=== PATIENT | female | born 1955 | race Caucasian/White ===

== ENCOUNTER 2025-02-15 14:24 | Emergency (ER) | payer OTHER ==
--- OUTSIDE RECORDS SUMMARY | 2025-02-15 14:28 | XMS REPORT | Continuity of Care Document ---
Author Name Unknown Address [address] 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 Role Phone HARESH IGLESIAS Primary Care Physician Unavailab HARESH Briceño Attending Clinician Unavailable Haresh Dasilva Attending Clinician [phone] MIKE BRANDON Attending Clinician MIKE Saldivar Attending Clinician Mike Saldivar MD Attending Clinician + [phone], [facility] Attending Clinician Unavailable Doctor Unassigned, Krebs Attending Clinician U KAYKAY Colvin Attending Clinician Unavailable DERICK RODGERS Attending Clinician UnavailDERICK Elizondo Attending Clinician UnavailDerick Elizondo MD Attending Clinician [phone] Haresh Dasilva Attending Clinician [phone] Lab, Ang - Db Attending Clinician Unavailable Derick Rodgers MD Attending Clinician [phone] DELON BROWN Attending Clinician Unavailable Delon Skelton Attending Clinician [phone] RADIOLOGY Attending Clinician Unavailable Radiology Attending Clinician Unavailable Doctor Unassigned, Krebs Attending Clinician U MIMI Fernandez Attending Clinician UnavailMIMI Wilkins Attending Clinician UnavailLEIDY Cruz Attending Clinician Unavailable Monique Flores Attending Clinician Ethan SMALLWOOD, Leidy Attending Clinician [phone] Melida Cabrera MA Attending Clinician UnavailAngeline Quintero MA Attending Clinician UnavailAZIZA Currie Attending Clinician Unavailable Pob, [facility] Main Attending Clinician Marisela Morales RN, Christiana Attending Clinician Unavailjose e UNKNOWN, ATTENDING Attending Clinician Unavailab le Pob1, Acute [facility] Attending Clinician Unav ailable Unknown, Attending Attending Clinician Unavailab camelia Ebrahim RESISTOR COATER, Dano Attending Clinician [phone] HARESH IGLESIAS Admitting Clinician Unavailable CHRISTY RODRIGUEZ Admitting Clinician Unavailable Payers Payer Name Policy Type Policy Number Effective Date Expirati on Date Source [employer] [id number] 2011 00:00:00 Problems Condition Name Condition Details Condition Category Status Onset Date Resolution Date Last Treatment Date Treating Clinician Comments Source Acute vaginitis Acute vaginitis Disease Active 2-04 00:00: 00 [facility] Vaginal itching Vaginal itching Disease Active 2-04 00:00: 00 [facility] Chronic pain of left knee Chronic pain of left knee Disease Active 2023-11 0-30 00:00: 00 [facility] Swelling of lower leg Swelling of lower leg Disease Active 2023-11 0-30 00:00: 00 [facility] Varicose veins of calf Varicose veins of calf Disease Active 2023-11 0-30 00:00: 00 [facility] Foot pain, right Foot pain, right Disease Active 6-03 00:00: 00 [facility] Dupuytren contractur e Dupuytren contractur e Disease Active 6-03 00:00: 00 [facility] Mass of foot, right Mass of foot, right Disease Active 6-03 00:00: 00 [facility] Yeast infection Yeast infection Disease Active 3-14 00:00: 00 [facility] Ingrown nail of great toe of right foot Ingrown nail of great toe of right foot Disease Active 3- 00:00: 00 [facility] Staph aureus infection Staph aureus infection Disease Active 3 00:00: 00 [facility] Nausea Nausea Disease Active 06-16 00:00: 00 [facility] Epigastric abdominal tenderness without rebound tenderness Epigastric abdominal tenderness without rebound tenderness Disease Active 06-16 00:00: 00 [facility] Right lower quadrant abdominal tenderness without rebound tenderness Right lower quadrant abdominal tenderness without rebound tenderness Disease Active 06-16 00:00: 00 [facility] Weight gain Weight gain Disease Active 06-16 00:00: 00 [facility] Weight gain Weight gain Disease Active 06-16 00:00: 00 [facility] Well woman exam Well woman exam Disease Resolve d 05-06 00:00: 00 2025-01-06 00:00:00 2025-01-06 15:22:13 [facility] Allergies, Adverse Reactions, Alerts Allergy Name Allergy Type Status Severity Reaction(s) Onset Date Inactive Date Treating Clinician Comments Source NO KNOWN ALLERGIE S Drug Class Active [facility] Social History Social Habit Start Date Stop Date Quantity Comments Source Gender identity [facility] Alcoholic beverage intake 2025-01-09 00:00:00 2025-01-09 00:00:00 0 /d [facility] History of Social function 2024-04-25 00:00:00 2024-04-25 00:00:00 [facility] Exposure to SARS-CoV-2 (event) 2023-02-23 00:00:00 2023-03-05 08:18:00 Not sure [facility] Alcohol intake 2023-02-27 00:00:00 2023-02-27 00:00:00 0 /d [facility] Tobacco use and exposure 2022-06-16 00:00:00 2022-06-16 00:00:00 Smokeless tobacco non-user [facility] Sex assigned at 1955 00:00:00 1955 00:00:00 [facility] Smoking Status Start Date Stop Date Source Never smoked tobacco [facility] Medications Ordered Medication Name Filled Medication Name Start Date Stop Date Current Medication? Ordering Clinician Indication Dosage Frequency Signature (SIG) Comments Components Source valACYclovi r (VALTREX) 500 mg tablet 18 00:00: 00 Yes [id number] 500mg Take 1 tablet by mouth in the morning and 1 tablet in the evening. [facility] sulfamethox azole-trime thoprim (BACTRIM DS) 800-160 mg per tablet 01-09 00:00: 00 Yes [id number] 1{tbl} Take 1 tablet by mouth in the morning and 1 tablet in the evening. [facility] miconazole 2 % cream 12-27 00:00: 00 Yes [id number] Apply to area(s) 2 (two) times daily. [facility] diclofenac 75 mg EC tablet 2023-11 00:00: 00 Yes [id number] 75mg Take 1 tablet by mouth in the morning and 1 tablet in the evening. Take with meals. [facility] meloxicam 7.5 mg tablet 04-25 00:00: 00 09-21 00:00 :00 No [id number] 7.5mg Take 1 tablet by mouth in the morning. [facility] sulfamethox azole-trime thoprim (BACTRIM DS) 800-160 mg per tablet 03-03 00:00: 00 09-21 00:00 :00 No [id number] 1{tbl} Take 1 tablet by mouth in the morning and 1 tablet in the evening. [facility] mupirocin 2 % ointment 02-27 00:00: 00 09-21 00:00 :00 No [id number] Apply to area(s) daily. [facility] cephALEXin 500 mg capsule 02-27 00:00: 00 09-21 00:00 :00 No [id number] 500mg Take 1 capsule by mouth in the morning and 1 capsule in the evening. [facility] MULTIVITAMI N WITH MINERALS (MULTIVITAM IN & MINERAL FORMULA ORAL) 02-03 15:35: 33 02-03 00:00 :00 No Take by mouth. [facility] doxycycline hyclate 100 mg tablet 02-03 00:00: 00 09-21 00:00 :00 No [id number] 100mg Take 1 tablet by mouth in the morning and 1 tablet in the evening. [facility] fluconazole (DIFLUCAN) 150 mg tablet 02-03 00:00: 00 02-03 00:00 :00 No [id number] One dose now and repeat in 72 hrs [facility] MULTIVITAMI N WITH MINERALS (MULTIVITAM IN & MINERAL FORMULA ORAL) 01-30 09:04: 25 Yes Take by mouth. [facility] mupirocin 2 % ointment 01-30 00:00: 00 02-14 04:59 :00 No [id number] Apply to area(s) 3 (three) times daily for 14 days. [facility] doxycycline hyclate 100 mg tablet 01-28 00:00: 00 09-21 00:00 :00 No 100mg Take 1 tablet by mouth every 12 (twelve) hours. [facility] MULTIVITAMI N WITH MINERALS (MULTIVITAM IN & MINERAL FORMULA ORAL) 06-16 09:00: 40 Yes Take by mouth. [facility] diclofenac 75 mg EC tablet 01-31 00:00: 00 02-03 00:00 :00 No [id number] 75mg Take 1 tablet by mouth 2 (two) times daily with meals. [facility] Vital Signs Vital Name Observation Time Observation Value Comments Malu dawkins Systolic blood pressure 2025-01-09 21:37:00 115 mm[Hg] [facility] Diastolic blood pressure 2025-01-09 21:37:00 74 mm[Hg] [facility] Heart rate 2025-01-09 21:37:00 66 /min [facility] Body temperature 2025-01-09 21:37:00 36.89 Adelina [facility] Respiratory rate 2025-01-09 21:37:00 18 /min [facility] Body height 2025-01-09 21:37:00 160 cm [facility] Systolic blood pressure 2025-01-06 21:05:00 124 mm[Hg] [facility] Diastolic blood pressure 2025-01-06 21:05:00 76 mm[Hg] [facility] Heart rate 2025-01-06 21:05:00 64 /min [facility] Body temperature 2025-01-06 21:05:00 36.61 Adelina [facility] Respiratory rate 2025-01-06 21:05:00 18 /min [facility] Body height 2025-01-06 21:05:00 160 cm [facility] Systolic blood pressure 2024-12-27 20:02:00 127 mm[Hg] [facility] Diastolic blood pressure 2024-12-27 20:02:00 68 mm[Hg] [facility] Heart rate 2024-12-27 20:02:00 65 /min [facility] Body temperature 2024-12-27 20:02:00 37 Adelina [facility] Respiratory rate 2024-12-27 20:02:00 18 /min [facility] Body height 2024-12-27 20:02:00 160 cm [facility] Oxygen saturation in Arterial blood by Pulse oximetry 2024-12-27 20:02:00 98 /min [facility] Systolic blood pressure 2024-09-26 21:33:00 100 mm[Hg] [facility] Diastolic blood pressure 2024-09-26 21:33:00 66 mm[Hg] [facility] Heart rate 2024-09-26 21:33:00 65 /min [facility] Body height 2024-09-26 21:33:00 160 cm [facility] Systolic blood pressure 2024-09-21 14:20:00 146 mm[Hg] [facility] Diastolic blood pressure 2024-09-21 14:20:00 71 mm[Hg] [facility] Heart rate 2024-09-21 14:19:00 70 /min [facility] Body temperature 2024-09-21 14:19:00 36.78 Adelina [facility] Respiratory rate 2024-09-21 14:19:00 18 /min [facility] Body height 2024-09-21 14:19:00 160 cm [facility] Oxygen saturation in Arterial blood by Pulse oximetry 2024-09-21 14:19:00 98 /min [facility] Systolic blood pressure 2024-04-25 20:25:00 116 mm[Hg] [facility] Diastolic blood pressure 2024-04-25 20:25:00 71 mm[Hg] [facility] Heart rate 2024-04-25 20:25:00 59 /min [facility] Body temperature 2024-04-25 20:25:00 36.5 Adelina [facility] Respiratory rate 2024-04-25 20:25:00 18 /min [facility] Body height 2024-04-25 20:25:00 160 cm [facility] Oxygen saturation in Arterial blood by Pulse oximetry 2024-04-25 20:25:00 98 /min [facility] Systolic blood pressure 2023-08-13 13:06:00 108 mm[Hg] [facility] Diastolic blood pressure 2023-08-13 13:06:00 68 mm[Hg] [facility] Heart rate 2023-08-13 13:06:00 77 /min [facility] Body height 2023-08-13 13:06:00 160 cm [facility] Body weight 2023-08-13 13:06:00 71.215 kg [facility] BMI 2023-08-13 13:06:00 27.81 kg/m2 [facility] Body temperature 2023-03-05 15:57:00 36.39 Adelina [facility] Body height 2023-03-05 15:57:00 160 cm [facility] Body weight 2023-03-05 15:57:00 73.936 kg [facility] BMI 2023-03-05 15:57:00 28.87 kg/m2 [facility] Systolic blood pressure 2023-03-05 13:59:00 117 mm[Hg] [facility] Diastolic blood pressure 2023-03-05 13:59:00 73 mm[Hg] [facility] Heart rate 2023-03-05 13:59:00 69 /min [facility] Body temperature 2023-03-05 13:59:00 36.67 Adelina [facility] Respiratory rate 2023-03-05 13:59:00 18 /min [facility] Body height 2023-03-05 13:59:00 160 cm [facility] Body weight 2023-03-05 13:59:00 73.936 kg [facility] BMI 2023-03-05 13:59:00 28.87 kg/m2 [facility] Oxygen saturation in Arterial blood by Pulse oximetry 2023-03-05 13:59:00 99 /min [facility] Systolic blood pressure 2023-02-09 15:32:00 115 mm[Hg] [facility] Diastolic blood pressure 2023-02-09 15:32:00 72 mm[Hg] [facility] Heart rate 2023-02-09 15:32:00 58 /min [facility] Body temperature 2023-02-09 15:32:00 36.89 Adelina [facility] Body height 2023-02-09 15:32:00 160 cm [facility] Oxygen saturation in Arterial blood by Pulse oximetry 2023-02-09 15:32:00 100 /min [facility] Systolic blood pressure 2023-02-03 20:21:00 118 mm[Hg] [facility] Diastolic blood pressure 2023-02-03 20:21:00 64 mm[Hg] [facility] Heart rate 2023-02-03 20:21:00 64 /min [facility] Body temperature 2023-02-03 20:21:00 36.67 Adelina [facility] Body height 2023-02-03 20:21:00 160 cm [facility] Oxygen saturation in Arterial blood by Pulse oximetry 2023-02-03 20:21:00 99 /min [facility] Systolic blood pressure 2023-01-30 15:04:00 133 mm[Hg] [facility] Diastolic blood pressure 2023-01-30 15:04:00 76 mm[Hg] [facility] Heart rate 2023-01-30 15:04:00 70 /min [facility] Body temperature 2023-01-30 15:04:00 36.56 Adelina [facility] Body height 2023-01-30 15:04:00 160 cm [facility] Body weight 2023-01-30 15:04:00 72.576 kg [facility] BMI 2023-01-30 15:04:00 28.34 kg/m2 [facility] Oxygen saturation in Arterial blood by Pulse oximetry 2023-01-30 15:04:00 98 /min [facility] Systolic blood pressure 2022-06-16 13:59:00 124 mm[Hg] [facility] Diastolic blood pressure 2022-06-16 13:59:00 82 mm[Hg] [facility] Heart rate 2022-06-16 13:59:00 55 /min [facility] Body height 2022-06-16 13:59:00 160 cm [facility] Body weight 2022-06-16 13:59:00 70.308 kg pt reported weight verbally- refused to obtain weight physically [facility] BMI 2022-06-16 13:59:00 27.46 kg/m2 [facility] Oxygen saturation in Arterial blood by Pulse oximetry 2022-06-16 13:59:00 99 /min [facility] Procedures Procedure Date / Time Performed Performing Clinician Source BI DIAGNOSTIC TOMOSYNTHESIS RIGHT 2025-01-24 15:12:08 Haresh Iglesias [facility] POCT URINALYSIS 2024-12-27 20:00:00 Haresh Iglesias [facility] BI HITESH GUIDED CORE BREAST BIOPSY RIGHT 2024-06-20 16:17:25 Haresh Iglesias [facility] BI ULTRASOUND BREAST COMPLETE RIGHT 2024-06-08 20:58:00 Haresh Iglesias [facility] BI DIAGNOSTIC TOMOSYNTHESIS RIGHT 2024-06-08 20:37:27 Haresh Iglesias [facility] US FOOT RIGHT 2024-05-06 12:45:00 Haresh Iglesias [facility] XR TOES 2 VW LEFT 2023-08-13 13:24:01 Derick Rodgers [facility] XR TOES 2 VW LEFT 2023-08-07 14:04:40 Requisition, Pap er [facility] ASSIGNMENT OF BENEFITS 2023-08-07 13:40:17 Docto r Unassigned, Krebs [facility] DISCLOSURE AND CONSENT, MEDICAL AND SURGICAL PROCEDURES 2023-02-27 05:01:00 Doctor Unassigned, Krebs [facility] PHYSICIAN ORDERS 2023-02-09 05:01:00 Doctor Unas signed, Krebs [facility] US ABDOMEN LIMITED 2022-07-21 13:32:42 Haresh Iglesias [facility] Encounters Start Date/Time End Date/Time Encounter Type Admission Type Attending Clinicians Care Facility Care Department Encounter ID Source 2025-01-24 08:02:39 2025-01-24 23:59:00 Hospital Encounter Haresh Iglesias [facility] .2.840.114 350.1.13.10 4.2.7.2.686 [id number] [facility] 2025-01-24 08:02:39 2025-01-24 23:59:00 Outpatient R HARESH IGLESIAS [facility] [id number] [facility] 2025-01-17 10:00:00 2025-01-17 10:00:00 Outpatient R MIKE BURGOS MARISOL [facility] [id number] [facility] 2025-01-10 00:00:00 2025-01-10 16:57:10 [facility] .2.840.114 350.1.13.10 4.2.7.2.686 [id number] [facility] 2025-01-10 00:00:00 2025-01-10 11:42:54 Case Management [facility] 1.2.840.114 350.1.13.10 4.2.7.2.686 [id number] [facility] 2025-01-09 15:30:00 2025-01-09 15:53:14 Office Visit Jay-Chel s Mike [facility] 1.2840.114 350.1.13.10 4.2.7.2.686 [id number] [facility] 2025-01-09 15:15:00 2025-01-09 15:30:00 Second Rigger Visit 2, Adc Lab Jay-Chel s, Mike 2, Adc Lab [facility] 1.2.840.114 350.1.13.10 4.2.7.2.686 [id number] [facility] 2025-01-09 15:15:00 2025-01-09 15:15:00 Outpatient R JAY-CHEL S, MIKE JAY-CHEL S, MIKE [facility] [id number] [facility] 2024-05-02 00:00:00 2025-01-07 07:33:41 Orders Only Doctor Unassigned, Krebs Doctor Unassigned, Krebs [facility] 1..840.114 350.1.13.10 4.2.7.2.686 [id number] [facility] 2025-01-06 15:00:00 2025-01-06 15:49:46 Outpatient R JAY-CHEL S, MIKE JAY-CHEL S, MIKE [facility] [id number] [facility] 2025-01-06 15:00:00 2025-01-06 15:49:46 Office Visit Jay-Chel s, Mike [facility] 1.2.840.114 350.1.13.10 4.2.7.2.686 [id number] [facility] 2024-12-27 14:00:00 2024-12-27 14:16:18 Outpatient R HARESH IGLESIAS [facility] [id number] [facility] 2024-12-27 14:00:00 2024-12-27 14:16:18 [facility] 1..840.114 350.1.13.10 4.2.7.2.686 [id number] [facility] 2024-10-12 13:30:00 2024-10-12 13:30:00 Outpatient R VIRAJHARESH Burrell [facility] [id number] [facility] 2024-09-26 15:45:00 2024-09-26 15:51:01 Outpatient R DERICK RODGERS CRAIG [facility] [id number] [facility] 2024-09-26 15:45:00 2024-09-26 15:51:01 Office Visit Derick Rodgers [facility] 1.2.840.114 350.1.13.10 4.2.7.2.686 [id number] [facility] 2024-09-21 09:52:06 2024-09-21 23:59:00 Outpatient R VIRAJHARESH Burrell [facility] [id number] [facility] 2024-09-21 09:52:06 2024-09-21 23:59:00 Hospital Encounter [facility]Haresh burrell [facility] 1.2.840.114 350.1.13.10 4.2.7.2.686 [id number] [facility] 2024-09-21 09:30:00 2024-09-21 09:52:18 Office Visit Kelsie Haresh [facility] 1.2840.114 350.1.13.10 4.2.7.2.686 [id number] [facility] 2024-09-21 08:00:00 2024-09-21 08:00:00 Outpatient R HARESH IGLESIAS [facility] [id number] [facility] 2024-09-19 15:45:00 2024-09-19 15:45:00 Outpatient R RODGERS DERICK DERICK RODGERS [facility] [id number] [facility] 2024-09-08 00:00:00 2024-09-14 10:27:31 Telephone Haresh Iglesias [facility] 1.2840.114 350.1.13.10 4.2.7.2.686 [id number] [facility] 2024-06-21 00:00:00 2024-06-21 15:31:10 Telephone Haresh Iglesias [facility] 1.2840.114 350.1.13.10 4.2.7.2.686 [id number] [facility] 2024-06-20 08:34:34 2024-06-20 23:59:00 Outpatient R HARESH IGLESIAS [facility] [id number] [facility] 2024-06-20 08:34:34 2024-06-20 23:59:00 Hospital Encounter Haresh Iglesias [facility] 1.2840.114 350.1.13.10 4.2.7.2.686 [id number] [facility] 2024-06-13 00:00:00 2024-06-13 13:56:06 Telephone Haresh [facility]lesias [facility] 1.2840.114 350.1.13.10 4.2.7.2.686 [id number] [facility] 2024-06-08 13:40:11 2024-06-08 23:59:00 Hospital Encounter VirajHaresh burrell [facility] 1.0.114 350.1.13.10 4.2.7.2.686 [id number] [facility] 2024-06-08 13:39:37 2024-06-08 13:39:37 Outpatient R KELSIEHARESH [facility] [id number] [facility] 2024-06-08 13:39:37 2024-06-08 13:39:37 Hospital Encounter KelsieHaresh [facility] 1..114 350.1.13.10 4.2.7.2.686 [id number] [facility] 2024-05-31 00:00:00 2024-05-31 00:00:00 Outpatient R KELSIECHRISTENIE [facility] [id number] [facility] 2024-05-25 09:30:00 2024-05-25 09:30:00 Outpatient R HARESH IGLESIAS [facility] [id number] [facility] 2024-05-06 07:03:26 2024-05-06 23:59:00 Outpatient R HARESH IGLESIAS [facility] [id number] [facility] 2024-05-06 07:03:26 2024-05-06 23:59:00 Hospital Encounter Haresh Iglesias [facility] 1.114 350.1.13.10 4.2.7.2.686 [id number] [facility] 2024-05-02 00:00:00 2024-05-02 09:08:18 Telephone Haresh Igles[facility] 1.84.114 350.1.13.10 4.2.7.2.686 [id number] [facility] 2024-04-29 00:00:00 2024-04-29 13:45:51 Telephone [facility]resh [facility]lesias [facility] 1.84.114 350.1.13.10 4.2.7.2.686 [id number] [facility] 2024-04-28 08:45:00 2024-04-28 09:00:00 Second Rigger Visit Lab, Fabian VicenteHaresh burrell [facility] 1.84.114 350.1.13.10 4.2.7.2.686 [id number] [facility] 2024-04-28 08:45:00 2024-04-28 08:58:52 Outpatient R VIRAJHARESH Burrell [facility] [id number] [facility] 2024-04-28 00:00:00 2024-04-28 08:51:07 Telephone Haresh Iglesias [facility] 1.840.114 350.1.13.10 4.2.7.2.686 [id number] [facility] 2024-04-25 15:30:00 2024-04-25 15:51:43 Outpatient R HARESH IGLESIAS [facility] [id number] [facility] 2024-04-25 15:30:00 2024-04-25 15:51:43 Office Visit [facility]Haresh burrell [facility] 1.84.114 350.1.13.10 4.2.7.2.686 [id number] [facility] 2023-08-13 08:14:37 2023-08-13 23:59:00 Hospital Encounter Derick [facility] 1.840.114 350.1.13.10 4.2.7.2.686 [id number] [facility] 2023-08-13 08:00:00 2023-08-13 08:41:51 Outpatient R DELON BROWN [facility] [id number] [facility] 2023-08-13 08:00:00 2023-08-13 08:41:51 [facility] 1.840.114 350.1.13.10 4.2.7.2.686 [id number] [facility] 2023-08-07 08:40:41 2023-08-07 23:59:00 Outpatient R RADIOLOGY [facility] [id number] [facility] 2023-08-07 08:40:41 2023-08-07 23:59:00 Hospital Encounter Radiology [facility] 1.0.114 350.1.13.10 4.2.7.2.686 [id number] [facility] 2023-08-07 00:00:00 2023-08-07 00:00:00 Orders Only Doctor Unassigned, Krebs [facility] 1.2840.114 350.1.13.10 4.2.7.2.686 [id number] [facility] 2023-08-07 00:00:00 2023-08-07 00:00:00 Telephone [facility] 1.2840.114 350.1.13.10 4.2.7.2.686 [id number] [facility] 2023-04-14 14:00:00 2023-04-14 14:00:00 Outpatient R HARESH IGLESIAS [facility] [id number] [facility] 2023-04-09 00:00:00 2023-04-09 00:00:00 Patient Secure Msg Doctor Unassigned, Krebs [facility] 1.84.114 350.1.13.10 4.2.7.2.686 [id number] [facility] 2023-04-07 10:15:00 2023-04-07 10:15:00 Outpatient R MIMI KNIGHT [facility] [id number] [facility] 2023-03-19 09:30:00 2023-03-19 09:30:00 Outpatient MIMI PINTO [facility] [id number] [facility] 2023-03-05 11:00:00 2023-03-05 11:06:26 Office Visit Mimi Knight [facility] 1.840.114 350.1.13.10 4.2.7.2.686 [id number] [facility] 2023-03-05 09:30:00 2023-03-05 10:46:52 Outpatient LEIDY FISHER [facility] [id number] [facility] 2023-03-05 09:30:00 2023-03-05 10:46:52 Office Visit Monique Pearson David [facility] .84.114 350.1.13.10 4.2.7.2.686 [id number] [facility] 2023-03-04 00:00:00 2023-03-04 00:00:00 Patient Secure Msg Doctor Unassigned, Krebs [facility] 1.84.114 350.1.13.10 4.2.7.2.686 [id number] [facility] 2023-03-03 09:30:00 2023-03-03 09:30:00 Outpatient HARESH PATRICK [facility] [id number] [facility] 2023-03-03 00:00:00 2023-03-03 00:00:00 Telephone Mimi Knight [facility] 1..840.114 350.1.13.10 4.2.7.2.686 [id number] [facility] 2023-02-27 12:30:00 2023-02-27 13:31:25 Outpatient R MIMI KNIGHT MIMI [facility] [id number] [facility] 2023-02-27 00:00:00 2023-02-27 00:00:00 Orders Only Doctor Unassigned, [facility] 1..840.114 350.1.13.10 4.2.7.2.686 [id number] [facility] 2023-02-16 00:00:00 2023-02-16 00:00:00 Telephone Haresh Ilgesias [facility] 1..840.114 350.1.13.10 4.2.7.2.686 [id number] [facility] 2023-02-11 13:15:00 2023-02-11 13:15:00 Outpatient R DELON BROWN [facility] [id number] [facility] 2023-02-09 10:30:00 2023-02-09 10:51:46 Outpatient R HARESH IGLESIAS [facility] [id number] [facility] 2023-02-09 10:30:00 2023-02-09 10:51:46 Office Visit Kelsie [facility] 1..840.114 350.1.13.10 4.2.7.2.686 [id number] [facility] 2023-02-09 00:00:00 2023-02-09 00:00:00 Orders Only Doctor Unassigned, Krebs [facility] 1.840.114 350.1.13.10 4.2.7.2.686 [id number] [facility] 2023-02-06 13:00:00 2023-02-06 13:00:00 Outpatient R EMMA KNIGHTMIMI PHILLIPS [facility] [id number] [facility] 2023-02-03 15:30:00 2023-02-03 15:53:31 Outpatient R HARESH IGLESIAS [facility] [id number] [facility] 2023-02-03 15:30:00 2023-02-03 15:53:31 Office Visit Haresh Iglesias [facility] 1..840.114 350.1.13.10 4.2.7.2.686 [id number] [facility] 2023-01-30 09:31:45 2023-01-30 23:59:00 Outpatient R HARESH IGLESIAS [facility] [id number] [facility] 2023-01-30 09:30:00 2023-01-30 09:30:00 Office Visit Haresh Iglesias [facility] 1..840.114 350.1.13.10 4.2.7.2.686 [id number] [facility] 2022-07-21 07:41:03 2022-07-21 23:59:00 Outpatient R HARESH IGLESIAS [facility] [id number] [facility] 2022-07-21 07:41:03 2022-07-21 23:59:00 Hospital Encounter Haresh Iglesias [facility] 1.840.114 350.1.13.10 4.2.7.2.686 [id number] [facility] 2022-07-07 00:00:00 2022-07-07 00:00:00 Outpatient R VIRAJHARESH Burrell [facility] [id number] [facility] 2022-06-16 09:30:00 2022-06-16 09:45:00 Second Rigger Visit Lab, Fabian Alvarado [facility] LAURO?RADHAMary [facility] 1.114 350.1.13.10 4.2.7.2.686 [id number] [facility] 2022-06-16 09:00:00 2022-06-16 09:34:55 Office Visit VirajHaresh burrell [facility] LAURO?RADHAMary [facility] 1.114 350.1.13.10 4.2.7.2.686 [id number] [facility] 2022-06-16 09:00:00 2022-06-16 09:34:55 Outpatient R KELSIECHRISTENIE [facility] [id number] [facility] 2022-06-16 09:30:00 2022-06-16 09:30:00 Outpatient R VIRAJHARESH Burrell [facility] [id number] [facility] 2022-06-16 00:00:00 2022-06-16 00:00:00 Orders Only Doctor Unassigned, Krebs [facility] 1.114 350.1.13.10 4.2.7.2.686 [id number] [facility] 2022-06-09 00:00:00 2022-06-09 00:00:00 Pre Visit Outreach Melida Cabrera 1.114 350.1.13.10 4.2.7.2.686 [id number] [facility] 2022-06-06 00:00:00 2022-06-06 00:00:00 Abstract [facility] LAURO?[facility] 1.114 350.1.13.10 4.2.7.2.686 [id number] [facility] 2022-03-24 00:00:00 2022-03-24 00:00:00 Pre Visit Outreach Angeline Stern 1.284.114 350.1.13.10 4.2.7.2.686 [id number] [facility] 2022-03-03 00:00:00 2022-03-03 00:00:00 Orders Only Doctor Unassigned, Krebs [facility] 1..114 350.1.13.10 4.2.7.2.686 [id number] [facility] 2022-01-31 09:36:32 2022-01-31 23:59:00 Outpatient R DERICK RODGERS [facility] [id number] [facility] 2022-01-31 09:30:00 2022-01-31 13:05:52 Outpatient R DERICK RODGERS [facility] [id number] [facility] 2022-01-31 09:30:00 2022-01-31 13:05:52 Office Visit Derick Rodgers [facility] 1..840.114 350.1.13.10 4.2.7.2.686 [id number] [facility] 2022-01-28 10:00:00 2022-01-28 10:00:00 Outpatient R DERICK RODGERS [facility] [id number] [facility] 2021-09-27 09:15:00 2021-09-27 11:58:52 Outpatient R DERICK RODGERS [facility] [id number] [facility] 2021-09-27 09:03:09 2021-09-27 11:58:52 Office Visit Derick Rodgers [facility] 1.2.84114 350.1.13.10 4.2.7.2.686 [id number] [facility] 2021-09-27 09:15:00 2021-09-27 09:15:00 Outpatient R DERICK RODGERS [facility] [id number] [facility] 2021-09-12 00:00:00 2021-09-12 00:00:00 Telephone Derick Rodgers [facility] Lauro?[facility] 1.84.114 350.1.13.10 4.2.7.2.686 [id number] [facility] 2021-09-12 00:00:00 2021-09-12 00:00:00 Orders Only Doctor Unassigned, Krebs [facility] 1.84.114 350.1.13.10 4.2.7.2.686 [id number] [facility] 2021-04-30 10:00:00 2021-04-30 10:00:00 Outpatient R AZIZA ROBLES [facility] [id number] [facility] 2021-04-30 00:00:00 2021-04-30 00:00:00 Orders Only Doctor Unassigned, Krebs [facility] 1.84.114 350.1.13.10 4.2.7.2.686 [id number] [facility] 2021-04-17 15:00:00 2021-04-17 15:00:00 Outpatient R DELON BROWN [facility] [id number] [facility] 2021-04-17 14:18:30 2021-04-17 14:33:30 Office Visit Delon Brown [facility] 1.84.114 350.1.13.10 4.2.7.2.686 [id number] [facility] 2021-04-08 16:15:00 2021-04-08 16:15:00 Outpatient Cielo DELON BROWN [facility] [id number] [facility] 2021-04-08 13:15:44 2021-04-08 13:42:57 Office Visit Derick Rodgers Brett Malu [facility] delfino Shell 1.2.840.114 350.1.13.10 4.2.7.2.686 [id number] [facility] 2021-03-27 07:46:01 2021-03-27 08:01:01 Second Rigger Visit Pob, Adc Lab Main Rodgers, [facility] 1.2.840.114 350.1.13.10 4.2.7.2.686 [id number] [facility] 2021-03-27 07:42:33 2021-03-27 07:42:33 Hospital Encounter Samir Derick [facility] 1.2.840.114 350.1.13.10 4.2.7.2.686 [id number] [facility] 2021-03-27 07:42:33 2021-03-27 07:42:33 Outpatient R DERICK RODGERS [facility] [id number] [facility] 2021-03-27 00:00:00 2021-03-27 00:00:00 Outpatient R DERICK RODGERS [facility] [id number] [facility] 2021-03-21 11:00:00 2021-03-21 11:00:00 Outpatient R DERICK RODGERS [facility] [id number] [facility] 2021-03-21 09:24:39 2021-03-21 10:02:37 Office Visit Derick Rodgers [facility] delfino [employer] 1.2.840.114 350.1.13.10 4.2.7.2.686 [id number] [facility] 2021-03-21 00:00:00 2021-03-21 00:00:00 Orders Only Doctor Unassigned, Krebs [facility] 1.2.840.114 350.1.13.10 4.2.7.2.686 [id number] [facility] 2021-03-14 07:39:47 2021-03-14 23:59:00 Hospital Encounter Rodgers Derick [facility] 1.2.840.114 350.1.13.10 4.2.7.2.686 [id number] [facility] 2021-03-14 00:00:00 2021-03-14 00:00:00 Outpatient R DERICK RODGERS [facility] [id number] [facility] 2021-03-14 00:00:00 2021-03-14 00:00:00 Orders Only Doctor Unassigned, Krebs [facility] 1.2.840.114 350.1.13.10 4.2.7.2.686 [id number] [facility] 2021-03-01 08:19:32 2021-03-01 23:59:00 Hospital Encounter [facility]ick [facility] 1.2.840.114 350.1.13.10 4.2.7.2.686 [id number] [facility] 2021-03-01 07:59:49 2021-03-01 08:45:46 Office Visit Samir Derick [facility] 1.2.840.114 350.1.13.10 4.2.7.2.686 [id number] [facility] 2021-03-01 08:15:00 2021-03-01 08:15:00 Outpatient R DERICK RODGERS [facility] [id number] [facility] 2021-02-25 15:15:2021-02-25 15:15:00 Outpatient R DERICK RODGERS [facility] [id number] [facility] 2020-05-26 00:00:00 2020-05-26 00:00:00 Orders Only Doctor Unassigned, Krebs [facility] 1.2.114 350.1.13.10 4.2.7.2.686 [id number] [facility] 2020-03-04 00:00:00 2020-03-04 00:00:00 Telephone [facility] 1..114 350.1.13.10 4.2.7.2.686 [id number] [facility] 2020-03-04 00:00:00 2020-03-04 00:00:00 Telephone [facility] 1..114 350.1.13.10 4.2.7.2.686 [id number] 2020-03-03 09:20:00 2020-03-03 09:20:00 Outpatient R UNKNOWN, ATTENDING [facility] [id number] [facility] 2020-03-03 08:43:29 2020-03-03 09:09:31 Urgent Care Pob1, Acute Care Clinic Unknown, Attending Dano Rodriguez [facility] 1. 350.1.13.10 4.2.7.2.686 [id number] [facility] 2020-03-03 08:43:29 2020-03-03 09:09:31 Urgent Care Pob1, Acute Care Clinic [facility] 1..114 350.1.13.10 4.2.7.2.686 [id number] 2020-03-03 00:00:00 2020-03-03 00:00:00 Orders Only Doctor Unassigned, Krebs [facility] 1.20.114 350.1.13.10 4.2.7.2.686 [id number] [facility] 2020-03-03 00:00:00 2020-03-03 00:00:00 Orders Only Doctor Unassigned, Krebs [facility] 1.2.840.114 350.1.13.10 4.2.7.2.686 [id number] Results Test Description Test Time Test Comments Results Result Comments Source BI Diagnostic tomosynthesis right 4 17:39:31 Examination:BI Diagnostic tomosynthesis right History:Patient is 69 year old and is seen for: ?Abnormal mammogram on right breast.No relevant family history has been documented for this patient. Computer-aided detection (CAD) utilized. Comparisons: 06/08/2024 BI DIAGNOSTIC TOMOSYNTHESIS RIGHT and 04/15/2021 EXTERNAL MAMMOGRAM Findings:There are scattered areas of fibroglandular density. RightThe focal asymmetry in the right breast at 12:00 posterior depth, 9 cm from the nipple seen on RCC /51, R ML 26/54, R SML 21/44 and R SCC 9/40 is mammographically stable dating back to at least 2019, benign. ?Of note, no prior sonographic correlate was identified for this finding. No new suspicious mass, calcifications or architectural distortion was identified. There is a marker from previous needle biopsy. Impression: RightNo mammographic evidence of malignancy. Recommendation:Annua l mammographic follow-up - Right These findings and recommendations were discussed with the patient at the conclusion of today's examination. BI-RADS Category:Right 2 - Benign [facility] BREAST BIOPSY RIGHT 2024-06-20 19:29:09Examination:BI HITESH GUIDED CORE BREAST BIOPSY RIGHT The procedure was explained to the patient including benefits and alternatives. ?The risks, including but not limited to infection and bleeding, were reviewed and the patient agreed to undergo the procedure, signing the consent form. ?Timeout was performed. History:Patient is a 69 year old year old female and is seen for: ? Right breast biopsy. ?Focal asymmetry in the upper inner subareolar region of the right breast, anterior depth, with associated coarse calcifications. ?BI- RADS 4A. Comparisons: 06/08/2024 BI DIAGNOSTIC TOMOSYNTHESIS RIGHT, 06/08/2024 BI ULTRASOUND BREAST COMPLETE RIGHT The patient was upright position for the biopsy. ?The area of interest was localized and targeted via lateral approach utilizing digital spot mammography with computer calculation. After antiseptic preparation the skin puncture site was infiltrated with lidocaine. ?Deep local anesthesia about the biopsy site was administered using lidocaine with epin ephrine. ?A 9 gauge Brevera vacuum-assisted automated core biopsy needle was inserted to the computer determined depth, and stereotactic images showed satisfactory relationship of the needle positionto the target. ?Tissue cores were obtained. ?Digital specimen radiography showed calcifications within some of the cores. ?A BAR tissue marker clip was deployed through the needle, and the needle waswithdrawn. Post biopsy mammogram confirmed the clip at the biopsy site. Pending workup:Follow-up in6 months right breast mammogram for 14 mm focal asymmetry at 12 o'clock, posterior depth, 9 cm fromthe nipple (refer to diagnostic mammogram on 06/08/2024). ?BI-RADS 3Recommendation:Pending pathology results - RightShort interval follow-up 3D mammogram 6 months - Right IMarc MD, personally reviewed the study and agree with the resident's/fellow's report.Marc Sosa MD as teaching physician, was present during either the entire procedure and/or during the gonzalez components.[facility] ULTRASOUND BREAST COMPLETE RIGHT 2024-06-08 22:26:15Examination:BI DIAGNOSTIC TOMOSYNTHESIS RIGHTBI ULTRASOUND BREAST COMPLETE RIGHT History:Patient is69 year old and is seen for: ?Abn mmg. Computer-aided detection (CAD) utilized. Comparisons: outside imaging exams dating back to 2017. Outside exam dated 04/27/2024 with the following findings: Apparent progression of anterior depth right breast nodular asymmetry, superior to the nipple on MLO view,likely correlates to a medial asymmetry on the cc view. ?No other dominant masses. ?No apparent architectural distortion or suspicious microcalcifications. Impression: Apparent progression of anterior depth right breast nodular asymmetry superior and probably medial to the nipple. ?This deserves additional imaging by spot compressed views and ultrasound of the abnormality persist. ?BI-RADS 0. CURRENT EXAM: ? Findings:The right breast has scattered areas of fibroglandular density. There is a 24 mm focal asymmetry in the upper inner subareolar region of the right breast; best seen on RSCC image30 of 42 and RML image 30 of 55. Overlying coarse calcifications are noted in this area. There is a14 mm focal asymmetry seen in the right breast at 12 o'clock, posterior depth, 9 cm from the nipple. This is best seen on RCC image 25 of 52 and R MLO image 24 of 56. ?This appears mammographically stable in appearance since prior imaging. Right breast ultrasound: Survey ultrasound of the right breast and axilla was performed. No sonographic correlate is noted for the focal asymmetry in the upperinner subareolar region of the right breast. No sonographic correlate is noted for the focal asymmetry at 12:00, 9 cm from the nipple. The visualized level 1 axillary lymph nodes appear unremarkable. Impression: Right: There is a 24 mm focal asymmetry in the upper inner subareolar region of the right breast, anterior depth, with associated coarse calcifications; best seen on RSCC image 30 of 42 and RML image 30 of 55 (no definite sonographic correlate). ?3D guided biopsy is recommended. ?BI-RADS 4A. There is a 14 mm focal asymmetry at 12 o'clock, posterior depth, 9 cm from the nipple; best seen on RCC image 25 of 52 and R MLO image 24 of 56. ?This appears mammographically stable in appearance since prior imaging, however, short interval follow-up 3D mammogram with spot compression views is recommended in 6 months to document stability on spot compression imaging and exclude an underlying abnormality. ?BI-RADS 3. Recommendation:Tomosynthesis Biopsy - RightShort interval follow-up 3D mammogram 6 months - Right BI-RADS Category: Right 4A - Suspicious Abnormality - Biopsy Should Be Considered - Low Suspicion [facility] DI[facility]ST[facility]OSYNTHESIS [id number] 22:26:15Examination:BI DIAGNOSTIC TOMOSYNTHESIS RIGHTBI ULTRASOUND BREAST COMPLETE RIGHT History:Patient is69 year old and is seen for: ?Abn mmg. Computer-aided detection (CAD) utilized. Comparisons: outside imaging exams dating back to 2016. Outside exam dated 04/27/2024 with the following findings: Apparent progression of anterior depth right breast nodular asymmetry, superior to the nipple on MLO view,likely correlates to a medial asymmetry on the cc view. ?No other dominant masses. ?No apparent architectural distortion or suspicious microcalcifications. Impression: Apparent progression of anterior depth right breast nodular asymmetry superior and probably medial to the nipple. ?This deserves additional imaging by spot compressed views and ultrasound of the abnormality persist. ?BI-RADS 0. CURRENT EXAM: ? Findings:The right breast has scattered areas of fibroglandular density. There is a 24 mm focal asymmetry in the upper inner subareolar region of the right breast; best seen on RSCC image30 of 42 and RML image 30 of 55. Overlying coarse calcifications are noted in this area. There is a14 mm focal asymmetry seen in the right breast at 12 o'clock, posterior depth, 9 cm from the nipple. This is best seen on RCC image 25 of 52 and R MLO image 24 of 56. ?This appears mammographically stable in appearance since prior imaging. Right breast ultrasound: Survey ultrasound of the right breast and axilla was performed. No sonographic correlate is noted for the focal asymmetry in the upperinner subareolar region of the right breast. No sonographic correlate is noted for the focal asymmetry at 12:00, 9 cm from the nipple. The visualized level 1 axillary lymph nodes appear unremarkable. Impression: Right: There is a 24 mm focal asymmetry in the upper inner subareolar region of the right breast, anterior depth, with associated coarse calcifications; best seen on RSCC image 30 of 42 and RML image 30 of 55 (no definite sonographic correlate). ?3D guided biopsy is recommended. ?BI-RADS 4A. There is a 14 mm focal asymmetry at 12 o'clock, posterior depth, 9 cm from the nipple; best seen on RCC image 25 of 52 and R MLO image 24 of 56. ?This appears mammographically stable in appearance since prior imaging, however, short interval follow-up 3D mammogram with spot compression views is recommended in 6 months to document stability on spot compression imaging and exclude an underlying abnormality. ?BI-RADS 3. Recommendation:Tomosynthesis Biopsy - RightShort interval follow-up 3D mammogram 6 months - Right BI-RADS Category: Right 4A - Suspicious Abnormality - Biopsy Should Be Considered - Low Suspicion for [facility]ancyC[facility] HospitalUS FOOT [id number] 21:12:09 EXAM: US FOOT RIGHT HISTORY: 69 years -old female with 2 painful palpable lumps along theplantar aspect of the right foot. TECHNIQUE: Focused real-time grayscale and Doppler evaluation of the rightfoot was performed. COMPARISON: None. FINDINGS: Ultrasonography of the right foot demonstrate multiple hypoechoic,lobulated/fusiform masses along the plantar fascia central aponeurosis; asingle fusiformlesion is positioned just distal to the calcaneal insertionof the plantar fascia measuring approximately 2 cm in long axis with alarger bilobed heterogeneous hypoechoic lesion positioned along the moredistal medial aponeurosis approaching the flexor hallucis longus tendon.This lesion measures approximately 2.6 cm in long axis. Color Doppler flowdemonstrates no internal vascularity .[facility] Notes Date/Time Note Provider Source 2025-01-24 09:00:00 Mammogram normal , repeat in 1 year [facility] 2025-01-10 16:52:47 Name and verified, pt states she wants to schedule a visit to discuss results with Dr. Brandon after she completes her medications next week. Pt does not want to discuss with me at this time. Appt made for 01/17 Cassidy Kwok RN 01/10/2025 4:56 PM R REVERSE ENGINEER Cassidy Kwok RN [facility] 2025-01-10 14:14:46 Rizwan Rosenthal is a 69 year old female patient called state she has some questions regarding test results. Asking to speak with Misty Shields. R REVERSE ENGINEER Miranda Daly [facility] 2025-01-10 11:43:20 Rizwan Rosenthal is a 69 year old female Calling to go over her test results, pt states she saw them via [employer] and has questions for her provider. [facility] Flores [facility] 2025-01-09 15:15:00 Images from the original note were not included. Venipuncture collection performed by clean technique on the left anticubitus. Total of 1 attempts were made. Slight pressure and a bandage/dressing were applied to the site(s). The patient experienced no complications. The following specimens were processed according to instructions and sent to [facility] laboratories per lab order on : LT BLUE SST RED LAV PPT DK GREEN (LiHep) DK GREEN (SodH) KRAMER DK BLUE (K2) DK BLUE (S) ACD Blood Culture NIPT/NTD Jay Shields only. [facility] 2024-09-14 10:26:57 Closing encounter, patient has not returned any calls. Shayla Serrano MA [facility] 2024-09-13 10:05:05 Attempted to contact patient. No answer. Left message to call back. Shirley Marcum LVN 09/13/2024 10:05 AM Shirley Marcum CONSTRUCTION RIGGER [facility] 2024-09-08 09:07:53 Attempted to contact patient. No answer. Left message to call back. Shirley Marcum LVN 09/08/2024 9:07 AM [facility] 2024-09-08 08:59:52 Pt states she has been having pain in her upper calf for several weeks now and it has not gone away. She also has pain behind her knee. Please Advise. Gege Hidalgo [facility] 2024-06-21 15:29:51 US of right breast to be done in 6 months for stability Order placed [facility] 2024-06-13 13:55:26 Spoke with Patient and clarified that the order was placed by SHYANN Pacheco. Patient voiced understanding. Leonela Lindo RN [facility] 2024-06-13 10:39:03 Patient would like a call back soon her test is scheduled for 06/20/24 and wants to make sure she is good to go. Please call pt to [phone] she is very anxious about this. Jerri Ashby [facility] 2024-06-13 08:22:43 Rizwan Rosenthal is a 69 year old female would like to speak with nurse to confirm she has the correct orders placed for her upcoming 06/20 Biopsy. She would also like to schedule a follow up with PCP after biopsy. Please assist with [employer] if possible [phone] (home) Emigdio Watesr [facility] 2024-05-02 10:43:27 Addended by: HARESH IGLESIAS. on: 05/02/2024 10:43 AM Modules accepted: Orders [facility] 2024-05-02 10:42:59 Order was placed , we will upload results of lucie into chart for radiologist to compare [facility] 2024-05-02 09:39:51 Spoke with Patient and she is requesting that SHYANN Pacheco place the order and that she would like to do it through [facility]. Leonela Lindo RN [facility] 2024-05-02 09:04:26 Mammogram results are in from [facility] It is recommending US with spot compression of right breast. Has this been ordered for pt hy a Amy Davey DITCH CLEANER? Or do I need to order? [facility] 2024-04-29 14:44:30 info T [facility] 2024-04-29 13:43:28 Patient dropped of a copy of mammogram report done at [facility] provider requested pt to drop off, placed in providers box for review. Patient would like a call back if there are any questions or concerns. Jerri Ashby [facility] 2024-04-28 08:48:29 Contacted patient and notified her the order was placed on 04/25/24. Gave number to [facility] [phone] and advised her to ask for radiology. She verbalized understanding. US FOOT RIGHT [[id number]] (Order [id number]) IMAGING Date: 04/25/2024 Department: Ang-Db [facility] Med Ordering/Authorizing: Haresh Iglesias FNP Patient Information Patient Name Rizwan Rosenthal Legal Sex Female (age) 1955 (69 year old) Electronically Signed By Department Dept Phone Kelsie Haresh, SHYANN ANG-DB [facility] [phone] Future Order Information Expected Expires 04/25/2024 04/25/2025 Dupuytren contracture Comment: acute stable Plan: US FOOT RIGHT, meloxicam 7.5 mg tablet Shirley Marcum LVN [facility] 2024-04-28 08:45:00 Images from the original note were not included. Venipuncture collection performed by clean technique on the left anticubitus. Total of 1 attempts were made. Slight pressure and a bandage/dressing were applied to the site(s). The patient experienced no complications. The following specimens were processed according to instructions and sent to [facility] laboratories per lab order on 04/28/2024 : LT BLUE SST 1 RED LAV 2 PPT DK GREEN (LiHep) DK GREEN (SodH) KRAMER DK BLUE (K2) DK BLUE (S) ACD Blood Culture NIPT/NTD [facility] 2024-04-28 08:40:26 Pt came into the office on 04/25/2024 and stated Kelsie was going to place and order for an ultrasound for her foot. No orders placed. She is requesting a call back from her nurse once the orders has been placed. Melida Grover [facility] 2023-08-07 14:06:12 Formatting of this n ote might be different from the original. Pt calling back to see if she was able to get an appointment for today. Georgette Mendoza [facility] 2023-08-07 11:55:02 Formatting of this n ote might be different from the original. Pt calling because she broke her toe a month ago and its not health properly. Pt wants to know if she can be put in today or Thursday to have this looked at [facility]
[2025-02-15 15:37] LABS: Influenza A Ag Negative; Influenza B Ag Negative; SARS-CoV-2 Antigen Rapid Res Negative (Negative)
--- NOTE | 2025-02-15 15:42 | RAD REPORT ---
Procedure: Chest Single View HISTORY: Cough COMPARISON: none FINDINGS: The lungs appear clear of acute infiltrate. Lungs are mildly hyperaerated. No significant pleural effusion noted. The heart is normal size. IMPRESSION: No acute abnormality is displayed.
[2025-02-15] MEDS ORDERED: ONDANSETRON 4 MG/2 ML VIAL ONE (16:20)
[2025-02-15] MEDS ORDERED: NA CHLORIDE 0.9% 1,000 ML ONE (16:20)
[2025-02-15 16:43] LABS: Absolute Monocytes 0.4 K/uL (0.1-1.3); Absolute Neutrophil 7.8 K/uL (1.8-8.0); Basophils % 0.4 % (0-1.3); Eosinophils % 0.4 % (0-4.4); Hematocrit 41.9 % (36.0-45.0); Hemoglobin 14.3 g/dL (12.0-15.0); Lymphocytes % 10.4 % (15.3-44.8); MCH 29.8 pg (27.0-35.0); MCHC 34.1 g/dL (32.0-36.0); MCV 87.3 fL (80-100); MPV 8.9 fL (7.6-11.3); Monocytes % 4.8 % (3.3-12.3); Platelets 240 thou/uL (152-406); Red Cell Distribution Width 12.9 % (12.1-15.2)
[2025-02-15 16:50] LABS: Urine Bilirubin NEGATIVE (Negative); Urine Blood Negative (Negative); Urine Clarity Clear (Clear); Urine Color Light-Yellow (Yellow); Urine Glucose NEGATIVE (Negative); Urine Ketones 1+ (Negative); Urine Microscopic Reflex YN NO UMIC; Urine Nitrite NEGATIVE (Negative); Urine Protein NEGATIVE (Negative); Urine Urobilinogen Normal (Normal)
[2025-02-15 17:02] LABS: Albumin 3.6 g/dL (3.4-5.0); Anion Gap 9.7 mEq/L (5.0-15.0); Bilirubin Total 0.7 mg/dL (0.2-1.0); Globulin 3.7 g/dL (2.3-3.5); Potassium 3.7 mEq/L (3.5-5.1); Protein, Total 7.3 g/dL (6.4-8.2); Troponin High Sensitivity 14.7 pg/mL (<58.9)
--- NOTE | 2025-02-15 17:53 | RAD REPORT ---
EXAMINATION: CT ABDOMEN AND PELVIS WITH CONTRAST CLINICAL INDICATION: Abdominal pain TECHNIQUE: CT abdomen and pelvis was performed, after the administration of 100 cc Isovue-300.. Sagit shabana and coronal reconstructions were obtained. One or more of the following dose reduction techniques were used: Automated exposure control, adjustment of the mA and kV according to patient si ze, and iterative reconstruction. Unless otherwise specified, incidental findings do not require dedicated imaging follow-up. [id number]. Oral contrast was not given which limits evaluation of bowel and appendix. COMPARISON: .None FINDINGS: Liver, spleen, pancreas, adrenals and kidneys appear unremarkable 8 mm calcified splenic arterial aneurysm. No evidence of diverticulitis. : IMPRESSION: No acute abnormality displayed
--- NOTE | 2025-02-15 18:03 | ER ---
Nurse's Notes [facility] Name: Rizwan Werner Age: 69 yrs Sex: Female : 1955 Arrival Date: 02/15/2025 Time: 14:24 Bed 7 Private MD: Diagnosis: Noninfective gastroenteritis and colitis, unspecified;Cough Presentation: 02/15 14:51 Chief complaint:. iw 14:52 Chief complaint: Patient states: cough congestion for about a week, abd pain, n/v , leg iw cramping and pressure in lungs last night. Coronavirus screen: Client presents with at least one sign or symptom that may indicate coronavirus-19. Ebola Screen: No symptoms or risks identified at this time. Initial Sepsis Screen: Does the patient meet any 2 criteria? No. Patient's initial sepsis screen is negative. Does the patient have a suspected source of infection? No. Patient's initial sepsis screen is negative. Risk Assessment: Do you want to hurt yourself or someone else? Patient reports no desire to harm self or others. Onset of symptoms was February 08, 2025. 14:52 Method Of Arrival: Ambulatory iw 14:52 Acuity: JERALD 3 iw Historical: - Allergies: 14:54 No Known Allergies; iw - Home Meds: 14:54 None [Active]; iw - PMHx: 14:54 None; iw - PSHx: 14:54 knee meniscus; section; iw - Immunization history:: Adult Immunizations not up to date. - Infectious Disease History:: Denies. - Social history:: Smoking status: Patient denies any tobacco usage or history of. Screenin:08 [facility] ED Fall Risk Assessment (Adult) History of falling in the last 3 months, db including since admission No falls in past 3 months (0 pts) Confusion or Disorientation No (0 pts) Intoxicated or Sedated No (0 pts) Impaired Gait No (0 pts) Mobility Assist Device Used No (0 pt) Altered Elimination No (0 pt) Score/Fall Risk Level 0 - 2 = Low Risk Oriented to surroundings, Maintained a safe environment. Abuse screen: Denies threats or abuse. Denies injuries from another. Nutritional screening: No deficits noted. Tuberculosis screening: No symptoms or risk factors identified. Assessment: 16:37 Reassessment: Patient appears in no apparent distress at this time. Patient and/or db family updated on plan of care and expected duration. Pain level reassessed. Patient is alert, oriented x 3, equal unlabored respirations, skin warm/dry/pink. General: Appears in no apparent distress. comfortable, Behavior is calm, cooperative. Pain: Complains of pain in epigastric area. Neuro: Level of Consciousness is awake, alert, obeys commands, Oriented to person, place. Respiratory: Airway is patent Respiratory effort is even, unlabored, Respiratory pattern is regular, symmetrical. GI: Abdomen is non-distended, Reports upper abdominal pain, diarrhea, nausea. 17:46 Reassessment: Patient appears in no apparent distress at this time. Patient and/or db family updated on plan of care and expected duration. Pain level reassessed. Patient is alert, oriented x 3, equal unlabored respirations, skin warm/dry/pink. 18:42 Reassessment: Patient and/or family updated on plan of care and expected duration. Pain db level reassessed. Patient is alert, oriented x 3, equal unlabored respirations, skin warm/dry/pink. Patient states feeling better. Patient states symptoms have improved. Vital Signs: 14:52 BP 107 / 77; Pulse 77; Resp 16; Pulse Ox 99% ; Weight 67.13 kg; Height 5 ft. 3 in. ; iw 16:35 BP 125 / 74; Pulse 69; Resp 16; Pulse Ox 100% ; db 17:00 BP 129 / 67; Pulse 71; Resp 16; Pulse Ox 99% on R/A; db 17:48 BP 129 / 62; Pulse 79; Resp 16; Pulse Ox 100% on R/A; db 18:30 BP 119 / 91; Pulse 77; Resp 16; Pulse Ox 99% on R/A; db 14:52 Body Mass Index 26.22 (67.13 kg, 160.02 cm) iw ED Course: 14:35 Patient arrived in ED. mr 14:36 Raisa Cates, [facility] kb 14:36 Kuldip Lowry MD is Attending Physician. kb 14:54 Triage completed. iw 15:34 XRAY Chest (1 view) In Process Unspecified. EDMS 16:06 Arm band placed on Patient placed in an exam room, on a stretcher. ll1 16:15 Rosario Mike, RN is Primary Nurse. db 16:31 Initial lab(s) drawn, by me, sent to lab. Inserted saline lock: 20 gauge in left db antecubital area, using aseptic technique. Blood collected. Flushed with 10 mL NS. 17:09 Patient has correct armband on for positive identification. Bed in low position. Call db light in reach. Side rails up X2. Client placed on continuous cardiac and pulse oximetry monitoring. NIBP monitoring applied. document control coordinator on. Pulse ox on. NIBP on. Door closed. Lights dimmed. Warm blanket given. Pillow given. 17:39 CT Abd/Pelvis - IV Contrast Only In Process Unspecified. EDMS 18:42 Provided Education on: DISCHARGE AND FOLLOWUP. db 18:42 No provider procedures requiring assistance completed. IV discontinued, intact, db bleeding controlled, No redness/swelling at site. Administered Medications: 16:32 Drug: Ondansetron IVP 4 mg IVP once; over 2 minutes Route: IVP; Site: left antecubital; db 18:43 Follow up: Response: No adverse reaction db 16:32 Drug: NS 0.9% IV 1000 ml IV at 1 bolus Per protocol; to be given as a bolus over 60 db minutes Route: IV; Rate: 1 bolus; Site: left antecubital; 18:43 Follow up: Response: No adverse reaction; IV Status: Completed infusion; IV Intake: db 1000ml Medication: 17:08 VIS not applicable for this client. db Intake: 18:43 IV: 1000ml; Total: 1000ml. db Outcome: 18:03 Discharge ordered by MD. brennan 18:42 Discharged to home ambulatory, with family, db 18:42 Condition: stable 18:42 Discharge instructions given to patient, family, Instructed on discharge instructions, follow up and referral plans. 18:43 Patient left the ED. db Signatures: Dispatcher [employer] EDTX Raisa Cates, TEXTILE SCREEN PRINTER-C TEXTILE SCREEN PRINTER-Ckb Katt Morgan, Reg Reg mr Mayra Mcconnell, PARKER RN iw Brittani Estes, PARKER RN ll1 Rosario Mike, PARKER RN db Corrections: (The following items were deleted from the chart) 17:09 17:08 [facility] ED Fall Risk Assessment (Adult) History of falling in the last 3 months, db including since admission No falls in past 3 months (0 pts) Confusion or Disorientation No (0 pts) Intoxicated or Sedated No (0 pts) Impaired Gait Yes (1 pt) Mobility Assist Device Used Yes (1 pt) Altered Elimination No (0 pt) Score/Fall Risk Level 0 - 2 = Low Risk Oriented to surroundings, Maintained a safe environment, db
--- NOTE | 2025-02-15 18:04 | EDPHYS ---
Physician Documentation [facility] Name: Rizwan Werner Age: 69 yrs Sex: Female : 1955 Arrival Date: 02/15/2025 Time: 14:24 Bed 7 Private MD: ED Physician Kuldip Lowry HPI: 02/15 14:38 This 69 yrs old Female presents to ER via Unassigned with complaints of High Blood kb Pressure. 14:38 Pt is a 69 year old female who presents for upper abd pain, n/v/d that started last kb night. States she has had cough and congestion for a couple of weeks, was put on Augmentin but stopped it after 3-4 doses. States she went to a clinic today and they recommended she come in for evaluation for dehydration. Pt reports cramps in the legs. . Historical: - Allergies: 14:54 No Known Allergies; iw - Home Meds: 14:54 None [Active]; iw - PMHx: 14:54 None; iw - PSHx: 14:54 knee meniscus; section; iw - Immunization history:: Adult Immunizations not up to date. - Infectious Disease History:: Denies. - Social history:: Smoking status: Patient denies any tobacco usage or history of. ROS: 14:38 Constitutional: As per HPI kb Exam: 14:38 Constitutional: This is a well developed, well nourished patient who is awake, alert, kb and in no acute distress. Head/Face: Normocephalic, atraumatic. ENT: Moist Mucous membranes Cardiovascular: Regular rate Respiratory: Respirations even and unlabored. No increased work of breathing. Talking in full sentences Abdomen/GI: Soft, non-tender. No distention Skin: Warm, dry with normal turgor. Normal color. MS/ Extremity: Pulses equal, no cyanosis. Neurovascular intact. Full, normal range of motion. Neuro: Awake and alert, GCS 15, oriented to person, place, time, and situation. 15:07 ECG was reviewed by the Attending Physician. kb Vital Signs: 14:52 BP 107 / 77; Pulse 77; Resp 16; Pulse Ox 99% ; Weight 67.13 kg; Height 5 ft. 3 in. ; iw 16:35 BP 125 / 74; Pulse 69; Resp 16; Pulse Ox 100% ; db 17:00 BP 129 / 67; Pulse 71; Resp 16; Pulse Ox 99% on R/A; db 17:48 BP 129 / 62; Pulse 79; Resp 16; Pulse Ox 100% on R/A; db 18:30 BP 119 / 91; Pulse 77; Resp 16; Pulse Ox 99% on R/A; db 14:52 Body Mass Index 26.22 (67.13 kg, 160.02 cm) iw MDM: 14:36 Medical Screening Exam initiated 14:43 Data reviewed: vital signs, nurses notes. kb 18:02 Differential diagnosis: gastroenteritis, dehydration, pneumonia. Historians other than the Patient: Spouse/Significant Other: spouse. Counseling: I had a detailed discussion with the patient and/or guardian regarding the historical points, exam findings, and any diagnostic results supporting the discharge/admit diagnosis, lab results, radiology results, the need for outpatient follow up, a family practitioner, to return to the emergency department if symptoms worsen or persist or if there are any questions or concerns that arise at home. 18:03 I considered the following discharge prescriptions or medication management in the emergency department I discussed and recommended Over The Counter medications, Antibiotics: At this time antibiotics are not recommended, considered prescribing zofran and tessalon perles, but pt declined both . 02/15 14:44 Order name: CBC with Diff; Complete Time: 16:46 kb 02/15 14:44 Order name: CMP; Complete Time: 17:05 kb 02/15 14:44 Order name: Lipase; Complete Time: 17:05 kb 02/15 14:44 Order name: Urinalysis w/ reflexes kb 02/15 14:44 Order name: Group A Streptococcus Rapid; Complete Time: 15:38 kb 02/15 14:44 Order name: COVID-19 Ag + Flu A+B Ag; Complete Time: 15:38 kb 02/15 14:44 Order name: Troponin HS; Complete Time: 17:05 kb 02/15 15:30 Order name: Throat Culture EDNJ 02/15 14:44 Order name: XRAY Chest (1 view); Complete Time: 15:43 kb 02/15 17:26 Order name: CT Abd/Pelvis - IV Contrast Only; Complete Time: 17:54 kb 02/15 14:44 Order name: IV Saline Lock; Complete Time: 16:36 kb 02/15 14:44 Order name: Labs collected and sent; Complete Time: 16:36 kb 02/15 14:44 Order name: Cardiac monitoring; Complete Time: 17:07 kb 02/15 14:44 Order name: EKG - Nurse/Tech; Complete Time: 15:58 kb 02/15 14:44 Order name: O2 Sat Monitoring; Complete Time: 17:07 kb EC:07 Rate is 75 beats/min. Rhythm is regular. QRS Bay[place] is Normal. CT interval is normal at kb 152 msec. QRS interval is normal at 82 msec. QT interval is normal at 424 msec. Administered Medications: 16:32 Drug: Ondansetron IVP 4 mg IVP once; over 2 minutes Route: IVP; Site: left antecubital; db 18:43 Follow up: Response: No adverse reaction db 16:32 Drug: NS 0.9% IV 1000 ml IV at 1 bolus Per protocol; to be given as a bolus over 60 db minutes Route: IV; Rate: 1 bolus; Site: left antecubital; 18:43 Follow up: Response: No adverse reaction; IV Status: Completed infusion; IV Intake: db 1000ml Disposition Summary: 02/15/25 18:03 Discharge Ordered Notes: Location: Home kb Condition: Stable kb Diagnosis - Noninfective gastroenteritis and colitis, unspecified kb - Cough kb Followup: kb - With: Emergency Department - When: As needed - Reason: Worsening of condition Followup: kb - With: Private Physician - When: 2 - 3 days - Reason: Recheck today's complaints, Continuance of care, Re-evaluation by your physician Discharge Instructions: - Discharge Summary Sheet kb - Viral Gastroenteritis, Adult, [id number] kb - Cough, Adult, Gxyz-hi-[id number] kb Forms: - Medication Reconciliation Form kb - Antibiotic Education kb - Prescription Opioid Use kb - Patient Portal Instructions kb - Leadership Thank You Letter kb Signatures: Dispatcher [employer] Raisa Howell, MOSAIC TILE MAKER-C MOSAIC TILE MAKER-Mayra Lozoya, PARKER RN Rosario Olivo RN RN db Corrections: (The following items were deleted from the chart) 14:44 14:44 CBC+H.LAB.BRZ ordered. EDMS EDMS 14:44 14:44 COMPREHENSIVE METABOLIC PANEL+C.LAB.BRZ ordered. EDMS EDMS 14:44 14:44 LIPASE+C.LAB.BRZ ordered. EDMS EDMS 14:44 14:44 Urinalysis+U.LAB.BRZ ordered. EDMS EDMS 14:44 14:44 Group A Streptococcus Rapid Sc+I.LAB.BRZ ordered. EDMS EDMS 14: 14:44 COVID-19 Ag + Flu A+B Ag+I.LAB.BRZ ordered. EDMS EDMS 14: 14:44 Troponin High Sensitivity+C.LAB.BRZ ordered. EDMS EDMS 14: 14:44 Chest Single View+RAD.RAD.BRZ ordered. EDMS EDMS 17:25 17:05 Abdomen Pelvis W Con+CT.RAD.BRZ ordered. EDMS EDMS
[2025-02-15 19:41] VITALS: BP 119/91; O2SAT 99
--- NOTE | 2025-02-16 08:36 | EKG ---
Test Date: 2025-02-15 Test Time: 15:03:48 Social Media Senior Associate: BRADNT MEASUREMENT RESULTS: Intervals: Rate: 75 [place]: 152 QRSD: 82 QT: 380 QTc: 424 [place]: P: [place]: 152 QRS: -74 T: 49 INTERPRETIVE STATEMENTS: Normal sinus rhythm Low voltage QRS Left anterior fascicular block Possible Anterolateral infarct, age undetermined Abnormal ECG Compared to ECG 11/18/1995 07:58:00 Low QRS voltage now present Left anterior fascicular block now present Myocardial infarct finding now present Sinus bradycardia no longer present Electronically Signed On 02-16-25 08:35:06 CDT by Chevy Quick
== END 2025-02-15 18:43 | disposition home or self-care (01) ==
LOC: ER 14:24
DX: K52.9 Noninfective gastroenteritis and colitis, unspecified (principal); R05.9 Cough, unspecified; Z11.52 Encounter for screening for COVID-19
CPT/HCPCS: 96361; 93005; 87070; 85025; 36415; 81003; 84484; 83690; 80053; 74177; 71045; 96374; 99285; 87428; Q9967; J2405; J7030

== ENCOUNTER 2025-07-20 10:08 | Emergency (ER) | payer OTHER ==
--- OUTSIDE RECORDS SUMMARY | 2025-07-20 10:13 | XMS REPORT | Continuity of Care Document ---
Author Name Unknown Address [address] [facility]. 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 Name Role Phone HARESH IGLESIAS Primary Care Physician Unavailab HARESH Briceño Attending Clinician Unavailable Haresh Dasilva Attending Clinician [phone] MIKE BRANDON Attending Clinician MIKE Saldivar Attending Clinician Mike Saldivar MD Attending Clinician + [phone], [facility] Attending Clinician Unavailable Doctor Unassigned, [place] Attending Clinician U KAYKAY Colvin Attending Clinician Unavailable DERICK RODGERS Attending Clinician UnavailDERICK Elizondo Attending Clinician UnavailDerick Elizondo MD Attending Clinician [phone] Haresh Dasilva Attending Clinician [phone] Lab, Ang - Db Attending Clinician Unavailable Derick Rodgers MD Attending Clinician [phone] DELON BROWN Attending Clinician Unavailable Delon Skelton Attending Clinician [phone] RADIOLOGY Attending Clinician Unavailable Radiology Attending Clinician Unavailable Doctor Unassigned, [place] Attending Clinician U MIMI Fernandez Attending Clinician UnavailMIMI Wilkins Attending Clinician UnavailLEIDY Cruz Attending Clinician Unavailable Monique Flores Attending Clinician Ethan SMALLWOOD, Leidy Attending Clinician [phone] Melida Cabrera MA Attending Clinician UnavailAngeline Quintero MA Attending Clinician UnavailAZIZA Currie Attending Clinician Unavailable Pob, [facility] Main Attending Clinician Marisela Morales RN, Christiana Attending Clinician Unavailjose e UNKNOWN, ATTENDING Attending Clinician Unavailab le Pob1, [facility] Attending Clinician Unav ailable Unknown, Attending Attending Clinician Unavailab camelia Ebrahim BARREL ROLLER OPERATOR, Dano Attending Clinician [phone] HARESH IGLESIAS Admitting Clinician Unavailable CHRISTY RODRIGUEZ Admitting Clinician Unavailable Payers Payer Name Policy Type Policy Number Effective Date Expirati on Date Source [employer] [id number] 2011 00:00:00 Problems Condition Name Condition Details Condition Category Status Onset Date Resolution Date Last Treatment Date Treating Clinician Comments Source Acute vaginitis Acute vaginitis Disease Active 2-04 00:00: 00 [facility] Vaginal itching Vaginal itching Disease Active 2-04 00:00: 00 [facility] Chronic pain of left knee Chronic pain of left knee Disease Active 2023-11 0-30 00:00: 00 [facility] Swelling of lower leg Swelling of lower leg Disease Active 2023-11 0-30 00:00: 00 [facility] Varicose veins of calf Varicose veins of calf Disease Active 2023-11 0-30 00:00: 00 [facility] Foot pain, right Foot pain, right Disease Active 6-03 00:00: 00 [facility] Dupuytren contractur e Dupuytren contractur e Disease Active 6-03 00:00: 00 [facility] Mass of foot, right Mass of foot, right Disease Active 6-03 00:00: 00 [facility] Yeast infection Yeast infection Disease Active 3-14 00:00: 00 [facility] Ingrown nail of great toe of right foot Ingrown nail of great toe of right foot Disease Active 3- 00:00: 00 [facility] Staph aureus infection Staph aureus infection Disease Active 3 00:00: 00 [facility] Nausea Nausea Disease Active 06-16 00:00: 00 [facility] Epigastric abdominal tenderness without rebound tenderness Epigastric abdominal tenderness without rebound tenderness Disease Active 06-16 00:00: 00 [facility] Right lower quadrant abdominal tenderness without rebound tenderness Right lower quadrant abdominal tenderness without rebound tenderness Disease Active 06-16 00:00: 00 [facility] Weight gain Weight gain Disease Active 06-16 00:00: 00 [facility] Weight gain Weight gain Disease Active 06-16 00:00: 00 [facility] Well woman exam Well woman exam Disease Resolve d 05-06 00:00: 00 2025-01-06 00:00:00 2025-01-06 15:22:13 [facility] Allergies, Adverse Reactions, Alerts Allergy Name Allergy Type Status Severity Reaction(s) Onset Date Inactive Date Treating Clinician Comments Source NO KNOWN ALLERGIE S Drug Class Active [facility] Social History Social Habit Start Date Stop Date Quantity Comments Source Gender identity [facility] Alcoholic beverage intake 2025-01-09 00:00:00 2025-01-09 00:00:00 0 /[facility] History of Social function 2024-04-25 00:00:00 2024-04-25 00:00:00 [facility] Exposure to SARS-CoV-2 (event) 2023-02-23 00:00:00 2023-03-05 08:18:00 Not sure [facility] Alcohol intake 2023-02-27 00:00:00 2023-02-27 00:00:00 0 /d [facility] Tobacco use and exposure 2022-06-16 00:00:00 2022-06-16 00:00:00 Smokeless tobacco non-user [facility] Sex assigned at 1955 00:00:00 1955 [facility]:00:00 [facility] Smoking Status Start Date Stop Date Source Never smoked tobacco [facility] Medications Ordered Medication Name Filled Medication Name Start Date Stop Date Current Medication? Ordering Clinician Indication Dosage Frequency Signature (SIG) Comments Components Source valACYclovi r (VALTREX) 500 mg tablet 18 00:00: 00 Yes [id number] 500mg Take 1 tablet by mouth in the morning and 1 tablet in the evening. [facility] sulfamethox azole-trime thoprim (BACTRIM DS) 800-160 mg per tablet 01-09 00:00: 00 Yes [id number] 1{tbl} Take 1 tablet by mouth in the morning and 1 tablet in the evening. [facility] miconazole 2 % cream 12-27 00:00: 00 Yes [id number] Apply to area(s) 2 (two) times daily. [facility] diclofenac 75 mg EC tablet 2023-11 00:00: 00 Yes [id number] 75mg Take 1 tablet by mouth in the morning and 1 tablet in the evening. Take with meals. [facility] meloxicam 7.5 mg tablet 04-25 00:00: 00 09-21 00:00 :00 No [id number] 7.5mg Take 1 tablet by mouth in the morning. [facility] sulfamethox azole-trime thoprim (BACTRIM DS) 800-160 mg per tablet 03-03 00:00: 00 09-21 00:00 :00 No [id number] 1{tbl} Take 1 tablet by mouth in the morning and 1 tablet in the evening. [facility] mupirocin 2 % ointment 02-27 00:00: 00 09-21 00:00 :00 No [id number] Apply to area(s) daily. [facility] cephALEXin 500 mg capsule 02-27 00:00: 00 09-21 00:00 :00 No [id number] 500mg Take 1 capsule by mouth in the morning and 1 capsule in the evening. [facility] MULTIVITAMI N WITH MINERALS (MULTIVITAM IN & MINERAL FORMULA ORAL) 02-03 15:35: 33 02-03 00:00 :00 No Take by mouth. [facility] doxycycline hyclate 100 mg tablet 02-03 00:00: 00 09-21 00:00 :00 No [id number] 100mg Take 1 tablet by mouth in the morning and 1 tablet in the evening. [facility] fluconazole (DIFLUCAN) 150 mg tablet 02-03 00:00: 00 02-03 00:00 :00 No [id number] One dose now and repeat in 72 hrs [facility] MULTIVITAMI N WITH MINERALS (MULTIVITAM IN & MINERAL FORMULA ORAL) 01-30 09:04: 25 Yes Take by mouth. [facility] mupirocin 2 % ointment 01-30 00:00: 00 02-14 04:59 :00 No [id number] Apply to area(s) 3 (three) times daily for 14 days. [facility] doxycycline hyclate 100 mg tablet 01-28 00:00: 00 09-21 00:00 :00 No 100mg Take 1 tablet by mouth every 12 (twelve) hours. [facility] MULTIVITAMI N WITH MINERALS (MULTIVITAM IN & MINERAL FORMULA ORAL) 06-16 09:00: 40 Yes Take by mouth. [facility] diclofenac 75 mg EC tablet 01-31 00:00: 00 02-03 00:00 :00 No [id number] 75mg Take 1 tablet by mouth 2 (two) times daily with meals. [facility] Vital Signs Vital Name Observation Time Observation Value Comments Malu dawkins Systolic blood pressure 2025-01-09 21:37:00 115 mm[Hg[facility] Diastolic blood pressure 2025-01-09 21:37:00 74 mm[Hg[facility] Heart rate 2025-01-09 21:37:00 66 /min [facility] Body temperature 2025-01-09 21:37:00 36.89 [facility] Respiratory rate 2025-01-09 21:37:00 18 /min [facility] Body height 2025-01-09 21:37:00 160 cm [facility] Systolic blood pressure 2025-01-06 21:05:00 124 mm[Hg] [facility] Diastolic blood pressure 2025-01-06 21:05:00 76 mm[Hg] [facility] Heart rate 2025-01-06 21:05:00 64 /min [facility] Body temperature 2025-01-06 21:05:00 36.61 [facility] Respiratory rate 2025-01-06 21:05:00 18 /min [facility] Body height 2025-01-06 21:05:00 160 cm [facility] Systolic blood pressure 2024-12-27 20:02:00 127 mm[Hg] [facility] Diastolic blood pressure 2024-12-27 20:02:00 68 mm[Hg] [facility] Heart rate 2024-12-27 20:02:00 65 /min [facility] Body temperature 2024-12-27 20:02:00 37 [facility] Respiratory rate 2024-12-27 20:02:00 18 /min [facility] Body height 2024-12-27 20:02:00 160 cm [facility] Oxygen saturation in Arterial blood by Pulse oximetry 2024-12-27 20:02:00 98 /min [facility] Systolic blood pressure 2024-09-26 21:33:00 100 mm[Hg] [facility] Diastolic blood pressure 2024-09-26 21:33:00 66 mm[Hg] [facility] Heart rate 2024-09-26 21:33:00 65 /min [facility] Body height 2024-09-26 21:33:00 160 cm [facility] Systolic blood pressure 2024-09-21 14:20:00 146 mm[Hg] [facility] Diastolic blood pressure 2024-09-21 14:20:00 71 mm[Hg] [facility] Heart rate 2024-09-21 14:19:00 70 /min [facility] Body temperature 2024-09-21 14:19:00 36.78 [facility] Respiratory rate 2024-09-21 14:19:00 18 /min [facility] Body height 2024-09-21 14:19:00 160 cm [facility] Oxygen saturation in Arterial blood by Pulse oximetry 2024-09-21 14:19:00 98 /min [facility] Systolic blood pressure 2024-04-25 20:25:00 116 mm[Hg] [facility] Diastolic blood pressure 2024-04-25 20:25:00 71 mm[Hg] [facility] Heart rate 2024-04-25 20:25:00 59 /min [facility] Body temperature 2024-04-25 20:25:00 36.5 [facility] Respiratory rate 2024-04-25 20:25:00 18 /min [facility] Body height 2024-04-25 20:25:00 160 cm [facility] Oxygen saturation in Arterial blood by Pulse oximetry 2024-04-25 20:25:00 98 /min [facility] Systolic blood pressure 2023-08-13 13:06:00 108 mm[Hg] [facility] Diastolic blood pressure 2023-08-13 13:06:00 68 mm[Hg] [facility] Heart rate 2023-08-13 13:06:00 77 /min [facility] Body height 2023-08-13 13:06:00 160 cm [facility] Body weight 2023-08-13 13:06:00 71.215 kg [facility] BMI 2023-08-13 13:06:00 27.81 kg/m2 [facility] Body temperature 2023-03-05 15:57:00 36.39 [facility] Body height 2023-03-05 15:57:00 160 cm [facility] Body weight 2023-03-05 15:57:00 73.936 kg [facility] BMI 2023-03-05 15:57:00 28.87 kg/m2 [facility] Systolic blood pressure 2023-03-05 13:59:00 117 mm[Hg] [facility] Diastolic blood pressure 2023-03-05 13:59:00 73 mm[Hg] [facility] Heart rate 2023-03-05 13:59:00 69 /min [facility] Body temperature 2023-03-05 13:59:00 36.67 [facility] Respiratory rate 2023-03-05 13:59:00 18 /min [facility] Body height 2023-03-05 13:59:00 160 cm [facility] Body weight 2023-03-05 13:59:00 73.936 kg [facility] BMI 2023-03-05 13:59:00 28.87 kg/m2 [facility] Oxygen saturation in Arterial blood by Pulse oximetry 2023-03-05 13:59:00 99 /min [facility] Systolic blood pressure 2023-02-09 15:32:00 115 mm[Hg] [facility] Diastolic blood pressure 2023-02-09 15:32:00 72 mm[Hg] [facility] Heart rate 2023-02-09 15:32:00 58 /min [facility] Body temperature 2023-02-09 15:32:00 36.89 [facility] Body height 2023-02-09 15:32:00 160 cm [facility] Oxygen saturation in Arterial blood by Pulse oximetry 2023-02-09 15:32:00 100 /min [facility] Systolic blood pressure 2023-02-03 20:21:00 118 mm[Hg] [facility] Diastolic blood pressure 2023-02-03 20:21:00 64 mm[Hg] [facility] Heart rate 2023-02-03 20:21:00 64 /min [facility] Body temperature 2023-02-03 20:21:00 36.67 [facility] Body height 2023-02-03 20:21:00 160 cm [facility] Oxygen saturation in Arterial blood by Pulse oximetry 2023-02-03 20:21:00 99 /min [facility] Systolic blood pressure 2023-01-30 15:04:00 133 mm[Hg] [facility] Diastolic blood pressure 2023-01-30 15:04:00 76 mm[Hg] [facility] Heart rate 2023-01-30 15:04:00 70 /min [facility] Body temperature 2023-01-30 15:04:00 36.56 [facility] Body height 2023-01-30 15:04:00 160 cm [facility] Body weight 2023-01-30 15:04:00 72.576 kg [facility] BMI 2023-01-30 15:04:00 28.34 kg/m2 [facility] Oxygen saturation in Arterial blood by Pulse oximetry 2023-01-30 15:04:00 98 /min [facility] Systolic blood pressure 2022-06-16 13:59:00 124 mm[Hg] [facility] Diastolic blood pressure 2022-06-16 13:59:00 82 mm[Hg] [facility] Heart rate 2022-06-16 13:59:00 55 /min [facility] Body height 2022-06-16 13:59:00 160 cm [facility] Body weight 2022-06-16 13:59:00 70.308 kg pt reported weight verbally- refused to obtain weight physically [facility] BMI 2022-06-16 13:59:00 27.46 kg/m2 [facility] Oxygen saturation in Arterial blood by Pulse oximetry 2022-06-16 13:59:00 99 /min [facility] Procedures Procedure Date / Time Performed Performing Clinician Source BI DIAGNOSTIC TOMOSYNTHESIS RIGHT 2025-01-24 15:12:08 Haresh Iglesias [facility] POCT URINALYSIS 2024-12-27 20:00:00 Haresh Iglesias [facility] BI HITESH GUIDED CORE BREAST BIOPSY RIGHT 2024-06-20 16:17:25 Haresh Iglesias [facility] BI ULTRASOUND BREAST COMPLETE RIGHT 2024-06-08 20:58:00 Haresh Iglesias [facility] BI DIAGNOSTIC TOMOSYNTHESIS RIGHT 2024-06-08 20:37:27 Haresh Iglesias [facility] US FOOT RIGHT 2024-05-06 12:45:00 Haresh Iglesias [facility] XR TOES 2 VW LEFT 2023-08-13 13:24:01 Derick Rodgers [facility] XR TOES 2 VW LEFT 2023-08-07 14:04:40 Requisition, Pap [facility] ASSIGNMENT OF BENEFITS 2023-08-07 13:40:17 Docto r Unassigned, [facility] DISCLOSURE AND CONSENT, MEDICAL AND SURGICAL PROCEDURES 2023-02-27 05:01:00 Doctor Unassigned, [facility] PHYSICIAN ORDERS 2023-02-09 05:01:00 Doctor Unas signed, [facility] US ABDOMEN LIMITED 2022-07-21 13:32:42 Haresh Iglesias [facility] Encounters Start Date/Time End Date/Time Encounter Type Admission Type Attending Clinicians Care Facility Care Department Encounter ID Source 2025-01-24 08:02:39 2025-01-24 23:59:00 Hospital Encounter Haresh Iglesias [facility] .2.840.114 350.1.13.10 4.2.7.2.686 [id number] [facility] 2025-01-24 08:02:39 2025-01-24 23:59:00 Outpatient R HARESH IGLESIAS [facility] [id number] [facility] 2025-01-17 10:00:00 2025-01-17 10:00:00 Outpatient R MIKE BURGOS MARISOL [facility] [id number] [facility] 2025-01-10 00:00:00 2025-01-10 16:57:10 Telephone [facility] .2.840.114 350.1.13.10 4.2.7.2.686 [id number] [facility] 2025-01-10 00:00:00 2025-01-10 11:42:54 [facility] 1.2.840.114 350.1.13.10 4.2.7.2.686 [id number] [facility] 2025-01-09 15:30:00 2025-01-09 15:53:14 Office Visit Jay-Chel s Mike [facility] 1.2840.114 350.1.13.10 4.2.7.2.686 [id number] [facility] 2025-01-09 15:15:00 2025-01-09 15:30:00 Slab Lifting Engineer Visit 2, [facility] Jay-Chel s, Mike 2, [facility] 1.2.840.114 350.1.13.10 4.2.7.2.686 [id number] [facility] 2025-01-09 15:15:00 2025-01-09 15:15:00 Outpatient R JAY-CHEL S, MIKE JAY-CHEL S, MIKE [facility] [id number] [facility] 2024-05-02 00:00:00 2025-01-07 07:33:41 Orders Only Doctor Unassigned, [place] Doctor Unassigned, [place] [facility] 1..840.114 350.1.13.10 4.2.7.2.686 [id number] [facility] 2025-01-06 15:00:00 2025-01-06 15:49:46 Outpatient R JAY-CHEL S, MIKE JAY-CHEL S, MIKE [facility] [id number] [facility] 2025-01-06 15:00:00 2025-01-06 15:49:46 Office Visit Jay-Chel s, Mike [facility] 1.2.840.114 350.1.13.10 4.2.7.2.686 [id number] [facility] 2024-12-27 14:00:00 2024-12-27 14:16:18 Outpatient R HARESH IGLESIAS [facility] [id number] [facility] 2024-12-27 14:00:00 2024-12-27 14:16:18 [facility] VirajHaresh burrell [facility] 1..840.114 350.1.13.10 4.2.7.2.686 [id number] [facility] 2024-10-12 13:30:00 2024-10-12 13:30:00 Outpatient R VIRAJHARESH Burrell [facility] [id number] [facility] 2024-09-26 15:45:00 2024-09-26 15:51:01 Outpatient R DERICK RODGERS CRAIG [facility] [id number] [facility] 2024-09-26 15:45:00 2024-09-26 15:51:01 Office Visit Derick Rodgers [facility] 1.2.840.114 350.1.13.10 4.2.7.2.686 [id number] [facility] 2024-09-21 09:52:06 2024-09-21 23:59:00 Outpatient R VIRAJHARESH Burrell [facility] [id number] [facility] 2024-09-21 09:52:06 2024-09-21 23:59:00 Hospital Encounter VirajHaresh burrell [facility] 1.2.840.114 350.1.13.10 4.2.7.2.686 [id number] [facility] 2024-09-21 09:30:00 2024-09-21 09:52:18 Office Visit Kelsie Haresh [facility] 1.2840.114 350.1.13.10 4.2.7.2.686 [id number] [facility] 2024-09-21 08:00:00 2024-09-21 08:00:00 Outpatient R HARESH IGLESIAS [facility] [id number] [facility] 2024-09-19 15:45:00 2024-09-19 15:45:00 Outpatient R RODGERS DERICK DERICK RODGERS [facility] [id number] [facility] 2024-09-08 00:00:00 2024-09-14 10:27:31 Telephone Haresh Iglesias [facility] 1.2840.114 350.1.13.10 4.2.7.2.686 [id number] [facility] 2024-06-21 00:00:00 2024-06-21 15:31:10 Telephone Haresh Iglesias [facility] 1.2840.114 350.1.13.10 4.2.7.2.686 [id number] [facility] 2024-06-20 08:34:34 2024-06-20 23:59:00 Outpatient R HARESH IGLESIAS [facility] [id number] [facility] 2024-06-20 08:34:34 2024-06-20 23:59:00 Hospital Encounter Haresh Iglesias [facility] 1.2840.114 350.1.13.10 4.2.7.2.686 [id number] [facility] 2024-06-13 00:00:00 2024-06-13 13:56:06 Telephone Haresh Iglesias [facility] 1.2840.114 350.1.13.10 4.2.7.2.686 [id number] [facility] 2024-06-08 13:40:11 2024-06-08 23:59:00 Hospital Encounter VirajHaresh burrell [facility] 1.0.114 350.1.13.10 4.2.7.2.686 [id number] [facility] 2024-06-08 13:39:37 2024-06-08 13:39:37 Outpatient R KELSIEHARESH [facility] [id number] [facility] 2024-06-08 13:39:37 2024-06-08 13:39:37 Hospital Encounter KelsieHaresh [facility] 1..114 350.1.13.10 4.2.7.2.686 [id number] [facility] 2024-05-31 00:00:00 2024-05-31 00:00:00 Outpatient R KELSIECHRISTENIE [facility] [id number] [facility] 2024-05-25 09:30:00 2024-05-25 09:30:00 Outpatient R HARESH IGLESIAS [facility] [id number] [facility] 2024-05-06 07:03:26 2024-05-06 23:59:00 Outpatient R HARESH IGLESIAS [facility] [id number] [facility] 2024-05-06 07:03:26 2024-05-06 23:59:00 Hospital Encounter Haresh Iglesias [facility] 1.114 350.1.13.10 4.2.7.2.686 [id number] [facility] 2024-05-02 00:00:00 2024-05-02 09:08:18 Telephone Haresh Iglesias [facility]RADHAM[facility] 1.84.114 350.1.13.10 4.2.7.2.686 [id number] [facility] 2024-04-29 00:00:00 2024-04-29 13:45:51 Telephone Haresh Iglesias [facility] 1.84.114 350.1.13.10 4.2.7.2.686 [id number] [facility] 2024-04-28 08:45:00 2024-04-28 09:00:00 Slab Lifting Engineer Visit Lab, Fabian VicenteHaresh burrell [facility] 1.84.114 350.1.13.10 4.2.7.2.686 [id number] [facility] 2024-04-28 08:45:00 2024-04-28 08:58:52 Outpatient R VIRAJHARESH Burrell [facility] [id number] [facility] 2024-04-28 00:00:00 2024-04-28 08:51:07 Telephone Haresh Iglesias [facility] 1.840.114 350.1.13.10 4.2.7.2.686 [id number] [facility] 2024-04-25 15:30:00 2024-04-25 15:51:43 Outpatient R HARESH IGLESIAS [facility] [id number] [facility] 2024-04-25 15:30:00 2024-04-25 15:51:43 Office Visit VirajHaresh burrell [facility] 1.84.114 350.1.13.10 4.2.7.2.686 [id number] [facility] [facility] 2023-08-13 08:14:37 2023-08-13 23:59:00 Hospital Encounter [facility]ick [facility] 1.840.114 350.1.13.10 4.2.7.2.686 [id number] [facility] 2023-08-13 08:00:00 2023-08-13 08:41:51 Outpatient R DELON BROWN [facility] [id number] [facility] 2023-08-13 08:00:00 2023-08-13 08:41:51 [facility] 1.840.114 350.1.13.10 4.2.7.2.686 [id number] [facility] 2023-08-07 08:40:41 2023-08-07 23:59:00 Outpatient R RADIOLOGY [facility] [id number] [facility] 2023-08-07 08:40:41 2023-08-07 23:59:00 Hospital Encounter Radiology [facility] 1.0.114 350.1.13.10 4.2.7.2.686 [id number] [facility] 2023-08-07 00:00:00 2023-08-07 00:00:00 Orders Only Doctor Unassigned, [place] [facility] 1.2840.114 350.1.13.10 4.2.7.2.686 [id number] [facility] 2023-08-07 00:00:00 2023-08-07 00:00:00 Telephone RodgersDerick [facility]IGON OSCAR [facility] 1.2840.114 350.1.13.10 4.2.7.2.686 [id number] [facility] 2023-04-14 14:00:00 2023-04-14 14:00:00 Outpatient R HARESH IGLESIAS [facility] [id number] [facility] 2023-04-09 00:00:00 2023-04-09 00:00:00 Patient Secure Msg Doctor Unassigned, [place] [facility] 1.84.114 350.1.13.10 4.2.7.2.686 [id number] [facility] 2023-04-07 10:15:00 2023-04-07 10:15:00 Outpatient R MIMI KNIGHT [facility] [id number] [facility] 2023-03-19 09:30:00 2023-03-19 09:30:00 Outpatient MIMI PINTO [facility] [id number] [facility] 2023-03-05 11:00:00 2023-03-05 11:06:26 Office Visit Mimi Knight [facility] 1.840.114 350.1.13.10 4.2.7.2.686 [id number] [facility] 2023-03-05 09:30:00 2023-03-05 10:46:52 Outpatient LEIDY FISHER [facility] [id number] [facility] 2023-03-05 09:30:00 2023-03-05 10:46:52 Office Visit Monique Pearson David [facility] .84.114 350.1.13.10 4.2.7.2.686 [id number] [facility] 2023-03-04 00:00:00 2023-03-04 00:00:00 Patient Secure Msg Doctor Unassigned, [place] [facility] 1.84.114 350.1.13.10 4.2.7.2.686 [id number] [facility] 2023-03-03 09:30:00 2023-03-03 09:30:00 Outpatient HARESH PATRICK [facility] [id number] [facility] 2023-03-03 00:00:00 2023-03-03 00:00:00 Telephone Mimi Knight [facility] 1..840.114 350.1.13.10 4.2.7.2.686 [id number] [facility] 2023-02-27 12:30:00 2023-02-27 13:31:25 Outpatient R MIMI KNIGHT MIMI [facility] [id number] [facility] 2023-02-27 00:00:00 2023-02-27 00:00:00 Orders Only Doctor Unassigned, [place] [facility] 1..840.114 350.1.13.10 4.2.7.2.686 [id number] [facility] 2023-02-16 00:00:00 2023-02-16 00:00:00 Telephone Haresh Iglesias [facility] 1..840.114 350.1.13.10 4.2.7.2.686 [id number] [facility] 2023-02-11 13:15:00 2023-02-11 13:15:00 Outpatient R DELON BROWN [facility] [id number] [facility] 2023-02-09 10:30:00 2023-02-09 10:51:46 Outpatient R HARESH IGLESIAS [facility] [id number] [facility] 2023-02-09 10:30:00 2023-02-09 10:51:46 Office Visit Kelsie Haresh [facility] 1..840.114 350.1.13.10 4.2.7.2.686 [id number] [facility] 2023-02-09 00:00:00 2023-02-09 00:00:00 Orders Only Doctor Unassigned, [place] [facility] 1.840.114 350.1.13.10 4.2.7.2.686 [id number] [facility] 2023-02-06 13:00:00 2023-02-06 13:00:00 Outpatient R EMMA KNIGHTMIMI PHILLIPS [facility] [id number] [facility] 2023-02-03 15:30:00 2023-02-03 15:53:31 Outpatient R HARESH IGLESIAS [facility] [id number] [facility] 2023-02-03 15:30:00 2023-02-03 15:53:31 Office Visit Haresh Iglesias [facility] 1..840.114 350.1.13.10 4.2.7.2.686 [id number] [facility] 2023-01-30 09:31:45 2023-01-30 23:59:00 Outpatient R HARESH IGLESIAS [facility] [id number] [facility] 2023-01-30 09:30:00 2023-01-30 09:30:00 Office Visit Haresh Iglesias [facility] 1..840.114 350.1.13.10 4.2.7.2.686 [id number] [facility] 2022-07-21 07:41:03 2022-07-21 23:59:00 Outpatient R HARESH IGLESIAS [facility] [id number] [facility] 2022-07-21 07:41:03 2022-07-21 23:59:00 Hospital Encounter Haresh Iglesias [facility] 1.840.114 350.1.13.10 4.2.7.2.686 [id number] [facility] 2022-07-07 00:00:00 2022-07-07 00:00:00 Outpatient R VIRAJHARESH Burrell 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 [id number] [facility] 2022-06-16 09:30:00 2022-06-16 09:30:00 Outpatient R VIRAJHARESH Burrell [facility] [id number] [facility] 2022-06-16 00:00:00 2022-06-16 00:00:00 Orders Only Doctor Unassigned, [place] [facility] 1.114 350.1.13.10 4.2.7.2.686 [id number] [facility] 2022-06-09 00:00:00 2022-06-09 00:00:00 Pre Visit Outreach Melida Cabrera 1.114 350.1.13.10 4.2.7.2.686 [id number] [facility] 2022-06-06 00:00:00 2022-06-06 00:00:00 Abstract Kelsie [facility] LAURO?[facility]ENIGNO [facility] 1.114 350.1.13.10 4.2.7.2.686 [id number] [facility] 2022-03-24 00:00:00 2022-03-24 00:00:00 Pre Visit Outreach Angeline Stern 1.284.114 350.1.13.10 4.2.7.2.686 [id number] [facility] 2022-03-03 00:00:00 2022-03-03 00:00:00 Orders Only Doctor Unassigned, [place] [facility] 1..114 350.1.13.10 4.2.7.2.686 [id number] [facility] 2022-01-31 09:36:32 2022-01-31 23:59:00 Outpatient R DERICK RODGERS [facility] [id number] [facility] 2022-01-31 09:30:00 2022-01-31 13:05:52 Outpatient R DERICK RODGERS [facility] [id number] [facility] 2022-01-31 09:30:00 2022-01-31 13:05:52 Office Visit Derick Rodgers [facility] 1..840.114 350.1.13.10 4.2.7.2.686 [id number] [facility] 2022-01-28 10:00:00 2022-01-28 10:00:00 Outpatient R DERICK RODGERS [facility] [id number] [facility] 2021-09-27 09:15:00 2021-09-27 11:58:52 Outpatient R DERICK RODGERS [facility] [id number] [facility] 2021-09-27 09:03:09 2021-09-27 11:58:52 Office Visit Derick Rodgers [facility] 1.2.84114 350.1.13.10 4.2.7.2.686 [id number] [facility] 2021-09-27 09:15:00 2021-09-27 09:15:00 Outpatient R DERICK RODGERS [facility] [id number] [facility] 2021-09-12 00:00:00 2021-09-12 00:00:00 Telephone Derick Rodgers [facility] Lauro?Benigno sharif [facility] 1.84.114 350.1.13.10 4.2.7.2.686 [id number] [facility] 2021-09-12 00:00:00 2021-09-12 00:00:00 Orders Only Doctor Unassigned, [place] [facility] 1.84.114 350.1.13.10 4.2.7.2.686 [id number] [facility] 2021-04-30 10:00:00 2021-04-30 10:00:00 Outpatient R AZIZA ROBLES [facility] [id number] [facility] 2021-04-30 00:00:00 2021-04-30 00:00:00 Orders Only Doctor Unassigned, [place] [facility] 1.84.114 350.1.13.10 4.2.7.2.686 [id number] [facility] 2021-04-17 15:00:00 2021-04-17 15:00:00 Outpatient R DELON BROWN [facility] [id number] [facility] 2021-04-17 14:18:30 2021-04-17 14:33:30 Office Visit Delon Brown [facility] Surgical Specialti [facility] 1.84.114 350.1.13.10 4.2.7.2.686 [id number] [facility] 2021-04-08 16:15:00 2021-04-08 16:15:00 Outpatient Cielo DELON BROWN [facility] [id number] [facility] 2021-04-08 13:15:44 2021-04-08 13:42:57 Office Visit Derick Rodgers Brett Malu [facility] Health Surgical Specialti delfino Shell 1.2.840.114 350.1.13.10 4.2.7.2.686 [id number] [facility] 2021-03-27 07:46:01 2021-03-27 08:01:01 Slab Lifting Engineer Visit Pob, Adc Lab Main Rodgers, Derick Scott [facility] 1.2.840.114 350.1.13.10 4.2.7.2.686 [id number] [facility] 2021-03-27 07:42:33 2021-03-27 07:42:33 Hospital Encounter Samir Derick Scott [facility] 1.2.840.114 350.1.13.10 4.2.7.2.686 [id number] [facility] 2021-03-27 07:42:33 2021-03-27 07:42:33 Outpatient R DERICK RODGERS [facility] [id number] [facility] 2021-03-27 00:00:00 2021-03-27 00:00:00 Outpatient R DERICK RODGERS [facility] [id number] [facility] 2021-03-21 11:00:00 2021-03-21 11:00:00 Outpatient R DERICK RODGERS [facility] [id number] [facility] 2021-03-21 09:24:39 2021-03-21 10:02:37 Office Visit Derick Rodgers [facility] Health Surgical Specialti delfino [place] 1.2.840.114 350.1.13.10 4.2.7.2.686 [id number] [facility] 2021-03-21 00:00:00 2021-03-21 00:00:00 Orders Only Doctor Unassigned, [place] [facility] 1.2.840.114 350.1.13.10 4.2.7.2.686 [id number] [facility] 2021-03-14 07:39:47 2021-03-14 23:59:00 Hospital Encounter Rodgers Derick Scott [facility] 1.2.840.114 350.1.13.10 4.2.7.2.686 [id number] [facility] 2021-03-14 00:00:00 2021-03-14 00:00:00 Outpatient R DERICK RODGERS [facility] [id number] [facility] 2021-03-14 00:00:00 2021-03-14 00:00:00 Orders Only Doctor Unassigned, [place] [facility] 1.2.840.114 350.1.13.10 4.2.7.2.686 [id number] [facility] 2021-03-01 08:19:32 2021-03-01 23:59:00 Hospital Encounter Derick Rodgers [facility] 1.2.840.114 350.1.13.10 4.2.7.2.686 [id number] [facility] 2021-03-01 07:59:49 2021-03-01 08:45:46 Office Visit Samir Derick Scott [facility] 1.2.840.114 350.1.13.10 4.2.7.2.686 [id number] [facility] 2021-03-01 08:15:00 2021-03-01 08:15:00 Outpatient R DERICK RODGERS [facility] [id number] [facility] 2021-02-25 15:15:2021-02-25 15:15:00 Outpatient R DERICK RODGERS [facility] [id number] [facility] 2020-05-26 00:00:00 2020-05-26 00:00:00 Orders Only Doctor Unassigned, [place] [facility] 1.2.114 350.1.13.10 4.2.7.2.686 [id number] [facility] 2020-03-04 00:00:00 2020-03-04 00:00:00 Telephone [facility] 1..114 350.1.13.10 4.2.7.2.686 [id number] [facility] 2020-03-04 00:00:00 2020-03-04 00:00:00 Telephone [facility] 1..114 350.1.13.10 4.2.7.2.686 [id number] 2020-03-03 09:20:00 2020-03-03 09:20:00 Outpatient R UNKNOWN, ATTENDING [facility] [id number] [facility] 2020-03-03 08:43:29 2020-03-03 09:09:31 Urgent Care Pob1, Acute Care Clinic Unknown, Attending Dano Rodriguez [facility] 1. 350.1.13.10 4.2.7.2.686 [id number] [facility] 2020-03-03 08:43:29 2020-03-03 09:09:31 Urgent Care Pob1, Acute Care Clinic [facility] 1..114 350.1.13.10 4.2.7.2.686 [id number] 2020-03-03 00:00:00 2020-03-03 00:00:00 Orders Only Doctor Unassigned, [place] [facility] 1.20.114 350.1.13.10 4.2.7.2.686 [id number] [facility] 2020-03-03 00:00:00 2020-03-03 00:00:00 Orders Only Doctor Unassigned, [place] [facility] 1.2.840.114 350.1.13.10 4.2.7.2.686 [id number] Results Test Description Test Time Test Comments [...] BI-RADS Category:Right 2 - Benign Overall: [facility] CORE BREAST BIOPSY RIGHT 2024-06-20 [...] the entire procedure and/or during the gonzalez components.[facility] ULTRASOUND BREAST COMPLETE RIGHT 2024-06-08 22:26:15Examination:BI [...] Should Be Considered - [facility] Suspicion [facility] DI[facility] TOMOSYNTHESIS [id number] 22:26:15Examination:BI DIAGNOSTIC TOMOSYNTHESIS RIGHTBI ULTRASOUND BREAST COMPLETE [...] Should Be Considered - Low Suspicion for [facility] HospitalUS FOOT [id number] 21:12:09 EXAM: US FOOT RIGHT HISTORY: 69 [...] axis. Color Doppler flowdemonstrates no internal vascularity .[facility] Hospital Notes Date/Time Note Provider Source 2025-01-24 09:00:00 Mammogram normal , repeat in 1 year [facility] 2025-01-10 16:52:47 Name and verified, pt states she wants to schedule a visit to discuss results with Dr. Brandon after she completes her medications next week. Pt does not want to discuss with me at this time. Appt made for 01/17 Cassidy Kwok RN 01/10/2025 4:56 PM RY TANK OPERATOR Cassidy Kwok RN [facility] 2025-01-10 14:14:46 Rizwan Rosenthal is a 69 year old female patient called state she has some questions regarding test results. Asking to speak with Misty Shields. RY TANK OPERATOR Miranda Daly [facility] 2025-01-10 11:43:20 Rizwan Rosenthal is a 69 year old female Calling to go over her test results, pt states she saw them via [employer] and has questions for her provider. [facility] Linda Flores [facility] 2025-01-09 15:15:00 Images from the original note were not included. Venipuncture collection performed by clean technique on the left anticubitus. Total of 1 attempts were made. Slight pressure and a bandage/dressing were applied to the site(s). The patient experienced no complications. The following specimens were processed according to instructions and sent to [facility] laboratories per lab order on : LT BLUE SST RED LAV PPT DK GREEN (LiHep) DK GREEN (SodH) KRAMER DK BLUE (K2) DK BLUE (S) ACD Blood Culture NIPT/NTD Jay Shields only. [facility] 2024-09-14 10:26:57 Closing encounter, patient has not returned any calls. Shayla Serrano MA [facility] 2024-09-13 10:05:05 Attempted to contact patient. No answer. Left message to call back. Shirley Marcum LVN 09/13/2024 10:05 AM Shirley Marcum LACE PAPER MACHINE OPERATOR [facility] 2024-09-08 09:07:53 Attempted to contact patient. No answer. Left message to call back. Shirley Marcum LVN 09/08/2024 9:07 AM [facility] 2024-09-08 08:59:52 Pt states she has been having pain in her upper calf for several weeks now and it has not gone away. She also has pain behind her knee. Please Advise. Gege Hidalgo [facility] 2024-06-21 15:29:51 US of right breast to be done in 6 months for stability Order placed [facility] 2024-06-13 13:55:26 Spoke with Patient and clarified that the order was placed by SHYANN Pacheco. Patient voiced understanding. Leonela Lindo RN [facility] 2024-06-13 10:39:03 Patient would like a call back soon her test is scheduled for 06/20/24 and wants to make sure she is good to go. Please call pt to [phone] she is very anxious about this. Jerri Ashby [facility] 2024-06-13 08:22:43 Rizwan Rosenthal is a 69 year old female would like to speak with nurse to confirm she has the correct orders placed for her upcoming 06/20 Biopsy. She would also like to schedule a follow up with PCP after biopsy. Please assist with [employer] if possible [phone] (home) Emigdio Waters [facility] 2024-05-02 10:43:27 Addended by: HARESH IGLESIAS. on: 05/02/2024 10:43 AM Modules accepted: Orders [facility] 2024-05-02 10:42:59 Order was placed , we will upload results of lucie into chart for radiologist to compare [facility] 2024-05-02 09:39:51 Spoke with Patient and she is requesting that SHYANN Pacheco place the order and that she would like to do it through [facility]. Leonela Lindo RN [facility] 2024-05-02 09:04:26 Mammogram results are in from [facility] It is recommending US with spot compression of right breast. Has this been ordered for pt hy a Amy Davey HOPPER OPERATOR? Or do I need to order? [facility] 2024-04-29 14:44:30 info T [facility] 2024-04-29 13:43:28 Patient dropped of a copy of mammogram report done at [facility] provider requested pt to drop off, placed in providers box for review. Patient would like a call back if there are any questions or concerns. Jerri Ashby [facility] 2024-04-28 08:48:29 Contacted patient and notified her the order was placed on 04/25/24. Gave number to [facility] [phone] and advised her to ask for radiology. She verbalized understanding. US FOOT RIGHT [[id number]] (Order [id number]) IMAGING Date: 04/25/2024 Department: [facility] Med Ordering/Authorizing: Haresh Iglesias FNP Patient Information Patient Name Rizwan Rosenthal Legal Sex Female (age) 1955 (69 year old) Electronically Signed By Department Dept Phone Kelsie Haresh, SHYANN [facility] [phone] Future Order Information Expected Expires 04/25/2024 04/25/2025 Dupuytren contracture Comment: acute stable Plan: US FOOT RIGHT, meloxicam 7.5 mg tablet Shirley Marcum LVN [facility] 2024-04-28 08:45:00 Images from the original note were not included. Venipuncture collection performed by clean technique on the left anticubitus. Total of 1 attempts were made. Slight pressure and a bandage/dressing were applied to the site(s). The patient experienced no complications. The following specimens were processed according to instructions and sent to [facility] laboratories per lab order on 04/28/2024 : LT BLUE SST 1 RED LAV 2 PPT DK GREEN (LiHep) DK GREEN (SodH) KRAMER DK BLUE (K2) DK BLUE (S) ACD Blood Culture NIPT/NTD [facility] 2024-04-28 08:40:26 Pt came into the office on 04/25/2024 and stated Kelsie was going to place and order for an ultrasound for her foot. No orders placed. She is requesting a call back from her nurse once the orders has been placed. Melida Grover [facility] 2023-08-07 14:06:12 Formatting of this n ote might be different from the original. Pt calling back to see if she was able to get an appointment for today. Georgette Mendoza [facility] 2023-08-07 11:55:02 Formatting of this n ote might be different from the original. Pt calling because she broke her toe a month ago and its not health properly. Pt wants to know if she can be put in today or Thursday to have this looked at [facility]
[2025-07-20] MEDS ORDERED: KETOROLAC 30 MG/ML INJ ONE (12:13)
[2025-07-20] MEDS ORDERED: HYDROCODONE/APAP 5/325 MG TAB ONE (12:13)
--- NOTE | 2025-07-20 13:36 | RAD REPORT ---
EXAMINATION: XR RIGHT SHOUDLER CLINICAL INDICATION: Female, 70 years old. Pain;Swelling RIGHT TECHNIQUE:Two view radiograph of the right shoulder were obtained. COMPARISON: No prior exam. FINDINGS: No acute bone or joint abnormality detected. Mild AC joint degenerative changes. IMPRESSION: No acute osseous abnormalities. Mild AC degenerative changes.
--- NOTE | 2025-07-20 13:37 | RAD REPORT ---
EXAMINATION: XR Foot Left 3 View CLINICAL INDICATION: Female, 70 years old. [facility] MAIN Swelling;Pain Bed Name: TECHNIQUE: 3 view radiographs of the left foot were obtained. COMPARISON: No prior exam. FINDINGS: No evidence of fracture or dislocation. Normal alignment. No evidence of arthropathy or oth er focal bone lesion. Scattered mild degenerative changes. Subchondral small cystic lesion at the head of the first metatarsal, likely degenerative in nature. IMPRESSION: No acute osseous abnormalities. Degenerative changes as above.
--- NOTE | 2025-07-20 13:47 | EDPHYS ---
Physician Documentation [facility] Name: Rizwan Werner Age: 70 yrs Sex: Female : 1955 Arrival Date: 07/20/2025 Time: 10:08 Bed 12 Private MD: ED Physician Kuldip Lowry HPI: 07/20 15:01 This 70 yrs old Female presents to ER via Ambulatory with complaints of Fall dr5 Injury, Shoulder Injury. 15:01 Details of fall: The patient fell from an upright position, while standing. Onset: The dr5 symptoms/episode began/occurred acutely. Patient is a 70-year-old female with no past medical history coming in with slip and fall on tile landing on right shoulder and stabbing left toes. Patient states that she is not on blood thinners, denies loss of consciousness, denies chest pain, shortness of breath, abdominal pain, nausea, vomiting, diarrhea. Patient states that she has difficulty moving and ranging her right shoulder due to pain. Historical: - Allergies: 11: No Known Allergies; me1 - PMHx: 11: None; me1 - PSHx: 11:01 section; knee meniscus; me1 - Immunization history:: Adult Immunizations up to date. - Infectious Disease History:: Denies. - Social history:: Smoking status: Patient denies any tobacco usage or history of. ROS: 15:01 Constitutional: as per hpi dr5 Exam: 15:01 Constitutional: This is a well developed, well nourished patient who is awake, alert, dr5 and in no acute distress. Head/Face: Normocephalic, atraumatic. Eyes: Pupils equal round and reactive to light, extra-ocular motions intact. Lids and lashes normal. Conjunctiva and sclera are non-icteric and not injected. Cornea within normal limits. Periorbital areas with no swelling, redness, or edema. Chest/axilla: Normal chest wall appearance and motion. Nontender with no deformity. No lesions are appreciated. Cardiovascular: Regular rate and rhythm with a normal S1 and S2. Normal PMI, no JVD. No pulse deficits. Respiratory: Lungs have equal breath sounds bilaterally, clear to auscultation. No rales, rhonchi or wheezes noted. No increased work of breathing, no retractions or nasal flaring. Back: No spinal tenderness. No costovertebral tenderness. Full range of motion. Skin: Warm, dry with normal turgor. Normal color with no rashes, no lesions, and no evidence of cellulitis. Neuro: Awake and alert, GCS 15, oriented to person, place, time, and situation. Cranial nerves II-XII grossly intact. Motor strength 5/5 in all extremities. Sensory grossly intact. Cerebellar exam normal. Normal gait. 15:01 Musculoskeletal/extremity: Extremities: grossly normal except: noted in the anterior aspect of right shoulder: decreased ROM, pain, tenderness, noted in the left second toe and left third toe: contusion, ROM: full passive range of motion, in the right arm, Circulation is intact in all extremities. Sensation intact. Compartment Syndrome exam of affected extremity: is normal. no pain, no numbness, no tingling, no sensation deficit, no palor, no weak pulses, Vital Signs: 10:57 BP 125 / 74; Pulse 65; Resp 17; Temp 98.2; Pulse Ox 99% ; Weight 67.13 kg; Height 5 ft. me1 3 in. ; Pain 4/10; 10:57 Body Mass Index 26.22 (67.13 kg, 160.02 cm) me1 10:57 Pain Scale: Adult me1 Procedures: 15:01 Splinting: Splint applied to right arm using sling, applied by myself. Examined by me, dr5 post splint application: neurovascular intact, 2+ distal pulses palpable, brisk capillary refill noted, Patient tolerated well. MDM: 10:17 Medical Screening Exam initiated dr5 15:01 Differential diagnosis: abrasion, closed head injury, contusion, fracture, sprain, dr5 strain. Data reviewed: vital signs, nurses notes, radiologic studies, plain films. Consideration of Admission/Observation Escalation of care including admission/observation considered. Escalation considered if patient found to have open fracture or dislocation. 15:01 I considered the following discharge prescriptions or medication management in the [facility] emergency department I discussed and recommended Over The Counter medications, Medications were administered in the Emergency Department. See MAR. Historians other than the Patient: Spouse/Significant Other: Spouse at bedside. Care significantly affected by the following Social Determinants of Health: Poor access to healthcare and/or lack of insurance, Poor access to transportation, Problems related to employment. Counseling: I had a detailed discussion with the patient and/or guardian regarding the historical points, exam findings, and any diagnostic results supporting the discharge/admit diagnosis, the presence of at least one elevated blood pressure reading (>120/80) during this emergency department visit, radiology results, the need for outpatient follow up, for definitive care, a orthopedic surgeon, to return to the emergency department if symptoms worsen or persist or if there are any questions or concerns that arise at home. Medication response: [place]. Response to treatment: the patient's symptoms have markedly improved after treatment, After pain medication, patient was able to range her right shoulder completely.. Special discussion: I discussed with the patient/guardian in detail that at this point there is no indication for admission to the hospital. It is understood, however, that if the symptoms persist or worsen the patient needs to return immediately for re-evaluation. Based on the history and exam findings, there is no indication for further emergent testing or inpatient evaluation. I discussed with the patient/guardian the need to see the orthopedic surgeon for further evaluation of the symptoms. ED course: Will have patient placed in sling for 1 day and after that taken out to do shoulder and range of motion exercises. Medication given to help with inflammation. Recommended patient follow-up with Dr. Pritchard. Patient requested two reports. I printed two CDs and printed two reports and given to patient.. All questions answered. Strict ER precautions given. 07/20 12:12 Order name: Shoulder Right (2 View) XRAY; Complete Time: 13:41 dr5 07/20 12:12 Order name: Foot Left 3 View XRAY; Complete Time: 13:41 dr5 07/20 13:48 Order name: Sling; Complete Time: 14:15 dr5 Administered Medications: 12:29 Drug: HYDROcodone-acetaminophen PO 5 mg-325 mg 2 tabs PO once Route: PO; ss 14:04 Follow up: Response: No adverse reaction; Pain is decreased ss 12:29 Drug: Ketorolac IM 30 mg IM once Route: IM; Site: right deltoid; ss 14:04 Follow up: Response: No adverse reaction; Pain is decreased ss Disposition: 07/21 13:35 Co-signature as Attending Physician, Kuldip Lowry MD I agree with the assessment and catherine plan of care. Disposition Summary: 07/20/25 13:59 Discharge Ordered Notes: Location: Home(07/20/25 13:59) dr5 Condition: Stable(07/20/25 13:59) dr5 Diagnosis - Fall on same level, unspecified dr5 - Pain in right shoulder dr5 Followup: dr5 - With: Emergency Department - When: As needed - Reason: Worsening of condition Followup: dr5 - With: Private Physician - When: 1 - 2 days - Reason: Recheck today's complaints, Continuance of care, Re-evaluation by your physician Discharge Instructions: - Discharge Summary Sheet dr5 - Fall Prevention in the Home, Adult dr5 - Shoulder Pain dr5 - How to Use a Sling dr5 Forms: - Medication Reconciliation Form dr5 - Prescription Opioid Use dr5 - Patient Portal Instructions dr5 - Leadership Thank You Letter dr5 Prescriptions: - Tramadol 50 mg Oral Tablet - take 1 tablet ORAL route every 8 hours as needed; 12 tablet; Refills: 0, dr5 Product Selection Permitted - Medrol (Logan) 4 mg Oral Tablets, Dose Pack - take 1 tablet ORAL route as directed - follow package instructions; 1 packet; dr5 Refills: 0, Product Selection Permitted Signatures: Dispatcher [employer] EDMS Kuldip Lowry MD MD cha Blanchard, Shelby, RN RN ss Doris Dias RN RN me1 Huy Ricci, PILLOWCASE CLEANER-C PILLOWCASE CLEANER-Cdr5 Corrections: (The following items were deleted from the chart) 07/20 12:12 12:12 Shoulder Right 2 View+RAD.RAD.BRZ ordered. EDMS EDMS 12:12 12:12 Foot Left 3 View+RAD.RAD.BRZ ordered. EDSC EDMS 13:57 13:46 Inpatient Admission dr5 dr5 13:57 13:46 Gil Mares dr5 dr5 13:57 13:46 Intensive Care Unit dr5 dr5 13:57 13:46 Serious dr5 dr5 13:57 13:46 new dr5 dr5 13:57 13:46 have worsened dr5 dr5 13:57 13:46 Standard dr5 dr5 13:57 13:46 dr5 dr5 13:57 13:46 Type 2 diabetes mellitus with ketoacidosis without coma dr5 dr5
--- NOTE | 2025-07-20 13:47 | ER ---
Nurse's Notes [facility] Name: Rizwan Werner Age: 70 yrs Sex: Female : 1955 Arrival Date: 07/20/2025 Time: 10:08 Bed 12 Private MD: Diagnosis: Fall on same level, unspecified;Pain in right shoulder Presentation: 07/20 10:57 Chief complaint: Patient states: slipped and fell on wet tile. Hit her left foot on the il[place] pantry and landed on right shoulder. Bruises noted to left 1st, 2nd, 3rd toes and pain to right shoulder 03/02. Did not hit her head. No blood thinners. Coronavirus screen: At this time, the client does not indicate any symptoms associated with coronavirus-19. Ebola Screen: No symptoms or risks identified at this time. Initial Sepsis Screen: Does the patient meet any 2 criteria? No. Patient's initial sepsis screen is negative. Does the patient have a suspected source of infection? No. Patient's initial sepsis screen is negative. Risk Assessment: Do you want to hurt yourself or someone else? Patient reports no desire to harm self or others. Onset of symptoms was July 20, 2025 at 10:30. 10:57 Method Of Arrival: Ambulatory [facility] 10:57 Acuity: JREALD 4 me1 Historical: - Allergies: 11:01 No Known Allergies; me1 - PMHx: 11:01 None; me1 - PSHx: 11:01 section; knee meniscus; me1 - Immunization history:: Adult Immunizations up to date. - Infectious Disease History:: Denies. - Social history:: Smoking status: Patient denies any tobacco usage or history of. Screenin:15 Abuse screen: Denies threats or abuse. Denies injuries from another. Nutritional ss screening: No deficits noted. Tuberculosis screening: Never had TB. Assessment: 14:15 Reassessment: Patient appears in no apparent distress at this time. Patient and/or ss family updated on plan of care and expected duration. Pain level reassessed. Patient is alert, oriented x 3, equal unlabored respirations, skin warm/dry/pink. Reassessment: RASS 0. Respiratory: Respiratory effort is even, unlabored. Vital Signs: 10:57 BP 125 / 74; Pulse 65; Resp 17; Temp 98.2; Pulse Ox 99% ; Weight 67.13 kg; Height 5 ft. me1 3 in. ; Pain 4/10; 10:57 Body Mass Index 26.22 (67.13 kg, 160.02 cm) me1 10:57 Pain Scale: Adult me1 ED Course: 10:10 Patient arrived in ED. mr 10:16 Huy Ricci, [facility]5 10:16 Kuldip Lowry MD is Attending Physician. dr5 11:01 Triage completed. me1 11:01 Arm band placed on Patient placed in waiting room. me1 12:29 India Maki, PARKER is Primary Nurse. ss 12:46 Shoulder Right (2 View) XRAY In Process Unspecified. EDMS 12:46 Foot Left 3 View XRAY In Process Unspecified. EDMS 13:45 Gil Mares MD is Hospitalizing Provider. dr5 14:15 Patient has correct armband on for positive identification. ss 14:15 No provider procedures requiring assistance completed. Patient did not have IV access ss during this emergency room visit. Sling applied to right arm. Administered Medications: 12:29 Drug: HYDROcodone-acetaminophen PO 5 mg-325 mg 2 tabs PO once Route: PO; ss 14:04 Follow up: Response: No adverse reaction; Pain is decreased ss 12:29 Drug: Ketorolac IM 30 mg IM once Route: IM; Site: right deltoid; ss 14:04 Follow up: Response: No adverse reaction; Pain is decreased ss Medication: 14:15 VIS not applicable for this client. ss Outcome: 13:46 Decision to Hospitalize by Provider. dr5 13:59 Discharge ordered by MD. dr5 14:15 Discharged to home ambulatory, with family, ss 14:15 Condition: good 14:15 Discharge instructions given to patient, Instructed on discharge instructions, follow up and referral plans. medication usage, Demonstrated understanding of instructions, follow-up care, medications, Prescriptions given X 2, 14:17 Patient left the ED. ss Signatures: Dispatcher [employer] EDGA Katt Morgan, Reg Reg mr India Maki, RN RN Doris Dias RN RN me1 RicciHuy FNP-C WORKERS' COMPENSATION CLAIMS SUPERVISOR-Cdr5
[2025-07-20 21:29] VITALS: BP 125/74; TEMP 98.2; O2SAT 99
== END 2025-07-20 14:17 | disposition home or self-care (01) ==
LOC: ER 10:08
DX: M25.511 Pain in right shoulder (principal); W01.0XXA Fall on same level from slipping, tripping and stumbling without subsequent striking against object, initial encounter
CPT/HCPCS: 96372; 99284

== ENCOUNTER 2025-08-19 07:41 | Emergency (ER) | payer OTHER ==
--- OUTSIDE RECORDS SUMMARY | 2025-08-19 07:46 | XMS REPORT | Continuity of Care Document ---
Author Name Unknown Address [address] [facility] [place] [address] [facility] Address [address] [facility] [address] [place] [address] Care Team Providers Care Network Systems Analyst Name Role Phone HARESH IGLESIAS Primary Care Physician Unavailab HARESH Briceño Attending Clinician Unavailable Haresh Dasilva Attending Clinician [phone] KATIE BRANDON Attending Clinician KATIE Saldivar Attending Clinician Katie Saldivar MD Attending Clinician + [phone], [facility] Attending Clinician Unavailable Doctor Unassigned, [place] Attending Clinician U KAYKAY Colvin Attending Clinician Unavailable DERICK RODGERS Attending Clinician UnavailDERICK Elizondo Attending Clinician UnavailDerick Elizondo MD Attending Clinician [phone] Haresh Dasilva Attending Clinician [phone] Lab, Ang - Db Attending Clinician Unavailable Derick Rodgers MD Attending Clinician [phone] DELON BROWN Attending Clinician Unavailable Delon Skelton Attending Clinician [phone] RADIOLOGY Attending Clinician Unavailable Radiology Attending Clinician Unavailable Doctor Unassigned, [place] Attending Clinician U MIMI Fernandez Attending Clinician UnavailMIMI Wilkins Attending Clinician UnavailLEIDY Cruz Attending Clinician Unavailable Monique Flores Attending Clinician Ethan SMALLWOOD, Leidy Attending Clinician [phone] Melida Cabrera MA Attending Clinician UnavailAngeline Quintero MA Attending Clinician Unavailjose ROBLES, AZIZA Attending Clinician Unavailable Pob, [facility] Main Attending Clinician Marisela Morales RN, Christiana Attending Clinician Unavailjose e UNKNOWN, ATTENDING Attending Clinician Unavailab le Pob1, [facility] Attending Clinician Unav ailable Unknown, Attending Attending Clinician Unavailab le Ebrahim IT ADMINISTRATOR, [place] Attending Clinician [phone] HARESH IGLESIAS Admitting Clinician Unavailable CHRISTY RODRIGUEZ Admitting Clinician Unavailable Payers Payer Name Policy Type Policy Number Effective Date Expirati on Date Source MEDICARE PART A \T\ B [id number] 2019 00:00:00 LINDA [id number] 2020 00:00:00 [employer] [id number] 2011 00:00:00 Problems Condition Name Condition Details Condition Category Status Onset Date Resolution Date Last Treatment Date Treating Clinician Comments Source Post concussion syndrome Post concussion syndrome Disease Active 9-12 00:00: 00 [facility] Acute post-traum atic headache, not intractabl e Acute post-traum atic headache, not intractabl e Disease Active 9-12 00:00: 00 [facility] Acute vaginitis Acute vaginitis Disease Active 2-04 00:00: 00 [facility] Vaginal itching Vaginal itching Disease Active 2-04 00:00: 00 [facility] Chronic pain of left knee Chronic pain of left knee Disease Active 2023-11 0-30 00:00: 00 [facility] Swelling of lower leg Swelling of lower leg Disease Active 2023-11 0-30 00:00: 00 [facility] Varicose veins of calf Varicose veins of calf Disease Active 2023-11 0-30 00:00: 00 [facility] Foot pain, right Foot pain, right Disease Active 6-03 00:00: 00 [facility] Dupuytren contractur e Dupuytren contractur e Disease Active 0 6-03 00:00: 00 [facility] Mass of foot, right Mass of foot, right Disease Active 0 6-03 00:00: 00 [facility] Yeast infection Yeast infection Disease Active 0 3-14 00:00: 00 [facility] Ingrown nail of great toe of right foot Ingrown nail of great toe of right foot Disease Active 0 3-10 00:00: 00 [facility] Staph aureus infection Staph aureus infection Disease Active 0 3-10 00:00: 00 [facility] Nausea Nausea Disease Active 0 7-25 00:00: 00 [facility] Epigastric abdominal tenderness without rebound tenderness Epigastric abdominal tenderness without rebound tenderness Disease Active 0 7-25 00:00: 00 [facility] Right lower quadrant abdominal tenderness without rebound tenderness Right lower quadrant abdominal tenderness without rebound tenderness Disease Active 0 7-25 00:00: 00 [facility] Weight gain Weight gain Disease Active 0 7-25 00:00: 00 [facility] Weight gain Weight gain Disease Active 0 7-25 00:00: 00 [facility] Well woman exam Well woman exam Disease Resolve d 0 6-14 00:00: 00 2025-01-06 00:00:00 2025-01-06 15:22:13 [facility] Allergies, Adverse Reactions, Alerts Allergy Name Allergy Type Status Severity Reaction(s) Onset Date Inactive Date Treating Clinician Comments Source NO KNOWN ALLERGIE S Drug Class Active [facility] Social History Social Habit Start Date Stop Date Quantity Comments Source ASSERTION Not [facility] Gender identity [facility] Alcoholic beverage intake 2025-01-09 00:00:00 2025-01-09 00:00:00 0 /d [facility] History of Social function 2024-04-25 00:00:00 2024-04-25 00:00:00 [facility] Exposure to SARS-CoV-2 (event) 2023-02-23 00:00:00 2023-03-05 08:18:00 Not sure [facility] Alcohol intake 2023-02-27 00:00:00 2023-02-27 00:00:00 0 /d [facility] Tobacco use and exposure 2022-06-16 00:00:00 2022-06-16 00:00:00 Smokeless tobacco non-user [facility] Sex assigned at 1955 00:00:00 1955 00:00:00 [facility] Smoking Status Start Date Stop Date Source Never smoked tobacco [facility] Medications Ordered Medication Name Filled Medication Name Start Date Stop Date Current Medication? Ordering Clinician Indication Dosage Frequency Signature (SIG) Comments Components Source valACYclovi r (VALTREX) 500 mg tablet 01-10 00:00: 00 Yes [id number] 500mg Take 1 tablet by mouth in the morning and 1 tablet in the evening. [facility] sulfamethox azole-trime thoprim (BACTRIM DS) 800-160 mg per tablet 01-09 00:00: 00 Yes [id number] 1{tbl} Take 1 tablet by mouth in the morning and 1 tablet in the evening. [facility] miconazole 2 % cream 12-27 00:00: 00 Yes [id number] Apply to area(s) 2 (two) times daily. [facility] diclofenac 75 mg EC tablet 2023-11 00:00: 00 Yes [id number] 75mg Take 1 tablet by mouth in the morning and 1 tablet in the evening. Take with meals. [facility] meloxicam 7.5 mg tablet - 00:00: 00 09-21 00:00 :00 No [id number] 7.5mg Take 1 tablet by mouth in the morning. [facility] sulfamethox azole-trime thoprim (BACTRIM DS) 800-160 mg per tablet 4-11 00:00: 00 09-21 00:00 :00 No [id number] 1{tbl} Take 1 tablet by mouth in the morning and 1 tablet in the evening. [facility] mupirocin 2 % ointment 4- 00:00: 00 09-21 00:00 :00 No [id number] Apply to area(s) daily. [facility] cephALEXin 500 mg capsule - 00:00: 00 09-21 00:00 :00 No [id number] 500mg Take 1 capsule by mouth in the morning and 1 capsule in the evening. [facility] MULTIVITAMI N WITH MINERALS (MULTIVITAM IN & MINERAL FORMULA ORAL) 02-03 15:35: 33 02-03 00:00 :00 No Take by mouth. [facility] doxycycline hyclate 100 mg tablet 02-03 00:00: 00 09-21 00:00 :00 No [id number] 100mg Take 1 tablet by mouth in the morning and 1 tablet in the evening. [facility] fluconazole (DIFLUCAN) 150 mg tablet 02-03 00:00: 00 02-03 00:00 :00 No [id number] One dose now and repeat in 72 hrs [facility] MULTIVITAMI N WITH MINERALS (MULTIVITAM IN & MINERAL FORMULA ORAL) 01-30 09:04: 25 Yes Take by mouth. [facility] mupirocin 2 % ointment 01-30 00:00: 00 02-14 04:59 :00 No [id number] Apply to area(s) 3 (three) times daily for 14 days. [facility] doxycycline hyclate 100 mg tablet 308 00:00: 00 09-21 00:00 :00 No 100mg Take 1 tablet by mouth every 12 (twelve) hours. [facility] MULTIVITAMI N WITH MINERALS (MULTIVITAM IN & MINERAL FORMULA ORAL) 06-16 09:00: 40 Yes Take by mouth. [facility] diclofenac 75 mg EC tablet 2022-0 3-11 00:00: 00 02-03 00:00 :00 No [id number] 75mg Take 1 tablet by mouth 2 (two) times daily with meals. [facility] Vital Signs Vital Name Observation Time Observation Value Destiney dawkins Systolic blood pressure 2025-08-04 17:58:00 111 mm[Hg] [facility] Diastolic blood pressure 2025-08-04 17:58:00 75 mm[Hg] [facility] Heart rate 2025-08-04 17:58:00 69 /min [facility] Body height 2025-08-04 17:58:00 160 cm [facility] Body weight 2025-08-04 17:58:00 71.215 kg [facility] BMI 2025-08-04 17:58:00 27.81 kg/m2 [facility] Oxygen saturation in Arterial blood by Pulse oximetry 2025-08-04 17:58:00 97 /min [facility] Systolic blood pressure 2025-01-09 21:37:00 115 mm[Hg] [facility] Diastolic blood pressure 2025-01-09 21:37:00 74 mm[Hg] [facility] Heart rate 2025-01-09 21:37:00 66 /min [facility] Body temperature 2025-01-09 21:37:00 36.89 Adelina [facility] Respiratory rate 2025-01-09 21:37:00 18 /min [facility] Body height 2025-01-09 21:37:00 160 cm [facility] Systolic blood pressure 2025-01-06 21:05:00 124 mm[Hg] [facility] Diastolic blood pressure 2025-01-06 21:05:00 76 mm[Hg] [facility] Heart rate 2025-01-06 21:05:00 64 /min [facility] Body temperature 2025-01-06 21:05:00 36.61 Adelina [facility] Respiratory rate 2025-01-06 21:05:00 18 /min [facility] Body height 2025-01-06 21:05:00 160 cm [facility] Systolic blood pressure 2024-12-27 20:02:00 127 mm[Hg] [facility] Diastolic blood pressure 2024-12-27 20:02:00 68 mm[Hg] [facility] Heart rate 2024-12-27 20:02:00 65 /min [facility] Body temperature 2024-12-27 20:02:00 37 Adelina [facility] Respiratory rate 2024-12-27 20:02:00 18 /min [facility] Body height 2024-12-27 20:02:00 160 cm [facility] Oxygen saturation in Arterial blood by Pulse oximetry 2024-12-27 20:02:00 98 /min [facility] Systolic blood pressure 2024-09-26 21:33:00 100 mm[Hg] [facility] Diastolic blood pressure 2024-09-26 21:33:00 66 mm[Hg] [facility] Heart rate 2024-09-26 21:33:00 65 /min [facility] Body height 2024-09-26 21:33:00 160 cm [facility] Systolic blood pressure 2024-09-21 14:20:00 146 mm[Hg] [facility] Diastolic blood pressure 2024-09-21 14:20:00 71 mm[Hg] [facility] Heart rate 2024-09-21 14:19:00 70 /min [facility] Body temperature 2024-09-21 14:19:00 36.78 Adelina [facility] Respiratory rate 2024-09-21 14:19:00 18 /min [facility] Body height 2024-09-21 14:19:00 160 cm [facility] Oxygen saturation in Arterial blood by Pulse oximetry 2024-09-21 14:19:00 98 /min [facility] Systolic blood pressure 2024-04-25 20:25:00 116 mm[Hg] [facility] Diastolic blood pressure 2024-04-25 20:25:00 71 mm[Hg] [facility] Heart rate 2024-04-25 20:25:00 59 /min [facility] Body temperature 2024-04-25 20:25:00 36.5 Adelina [facility] Respiratory rate 2024-04-25 20:25:00 18 /min [facility] Body height 2024-04-25 20:25:00 160 cm [facility] Oxygen saturation in Arterial blood by Pulse oximetry 2024-04-25 20:25:00 98 /min [facility] Systolic blood pressure 2023-08-13 13:06:00 108 mm[Hg] [facility] Diastolic blood pressure 2023-08-13 13:06:00 68 mm[Hg] [facility] Heart rate 2023-08-13 13:06:00 77 /min [facility] Body height 2023-08-13 13:06:00 160 cm [facility] Body weight 2023-08-13 13:06:00 71.215 kg [facility] BMI 2023-08-13 13:06:00 27.81 kg/m2 [facility] Body temperature 2023-03-05 15:57:00 36.39 Adelina [facility] Body height 2023-03-05 15:57:00 160 cm [facility] Body weight 2023-03-05 15:57:00 73.936 kg [facility] BMI 2023-03-05 15:57:00 28.87 kg/m2 [facility] Systolic blood pressure 2023-03-05 13:59:00 117 mm[Hg] [facility] Diastolic blood pressure 2023-03-05 13:59:00 73 mm[Hg] [facility] Heart rate 2023-03-05 13:59:00 69 /min [facility] Body temperature 2023-03-05 13:59:00 36.67 Adelina [facility] Respiratory rate 2023-03-05 13:59:00 18 /min [facility] Body height 2023-03-05 13:59:00 160 cm [facility] Body weight 2023-03-05 13:59:00 73.936 kg [facility] BMI 2023-03-05 13:59:00 28.87 kg/m2 [facility] Oxygen saturation in Arterial blood by Pulse oximetry 2023-03-05 13:59:00 99 /min [facility] Systolic blood pressure 2023-02-09 15:32:00 115 mm[Hg] [facility] Diastolic blood pressure 2023-02-09 15:32:00 72 mm[Hg] [facility] Heart rate 2023-02-09 15:32:00 58 /min [facility] Body temperature 2023-02-09 15:32:00 36.89 Adelina [facility] Body height 2023-02-09 15:32:00 160 cm [facility] Oxygen saturation in Arterial blood by Pulse oximetry 2023-02-09 15:32:00 100 /min [facility] Systolic blood pressure 2023-02-03 20:21:00 118 mm[Hg] [facility] Diastolic blood pressure 2023-02-03 20:21:00 64 mm[Hg] [facility] Heart rate 2023-02-03 20:21:00 64 /min [facility] Body temperature 2023-02-03 20:21:00 36.67 Adelina [facility] Body height 2023-02-03 20:21:00 160 cm [facility] Oxygen saturation in Arterial blood by Pulse oximetry 2023-02-03 20:21:00 99 /min [facility] Systolic blood pressure 2023-01-30 15:04:00 133 mm[Hg] [facility] Diastolic blood pressure 2023-01-30 15:04:00 76 mm[Hg] [facility] Heart rate 2023-01-30 15:04:00 70 /min [facility] Body temperature 2023-01-30 15:04:00 36.56 Adelina [facility] Body height 2023-01-30 15:04:00 160 cm [facility] Body weight 2023-01-30 15:04:00 72.576 kg [facility] BMI 2023-01-30 15:04:00 28.34 kg/m2 [facility] Oxygen saturation in Arterial blood by Pulse oximetry 2023-01-30 15:04:00 98 /min [facility] Systolic blood pressure 2022-06-16 13:59:00 124 mm[Hg] [facility] Diastolic blood pressure 2022-06-16 13:59:00 82 mm[Hg] [facility] Heart rate 2022-06-16 13:59:00 55 /min [facility] Body height 2022-06-16 13:59:00 160 cm [facility] Body weight 2022-06-16 13:59:00 70.308 kg pt reported weight verbally- refused to obtain weight physically [facility] BMI 2022-06-16 13:59:00 27.46 kg/m2 [facility] Oxygen saturation in Arterial blood by Pulse oximetry 2022-06-16 13:59:00 99 /min [facility] Procedures Procedure Date / Time Performed Performing Clinician Source CT HEAD WO CONTRAST 2025-08-09 18:24:44 Haresh Iglesias [facility] BI DIAGNOSTIC TOMOSYNTHESIS RIGHT 2025-01-24 15:12:08 Haresh Iglesias [facility] POCT URINALYSIS 2024-12-27 20:00:[address] [facility] BI HITESH GUIDED CORE BREAST BIOPSY RIGHT 2024-06-20 16:17:25 Haresh Iglesias [facility] BI ULTRASOUND BREAST COMPLETE RIGHT 2024-06-08 20:58:00 Haresh Iglesias [facility] BI DIAGNOSTIC TOMOSYNTHESIS RIGHT 2024-06-08 20:37:27 Haresh Iglesias [facility] US FOOT RIGHT 2024-05-06 12:45:00 Haresh Iglesias [facility] XR TOES 2 VW LEFT 2023-08-13 13:24:01 Derick Rodgers [facility] XR TOES 2 VW LEFT 2023-08-07 14:04:40 Requisition, Pap er [facility] ASSIGNMENT OF BENEFITS 2023-08-07 13:40:17 Docto r Unassigned, [place] [facility] DISCLOSURE AND CONSENT, MEDICAL AND SURGICAL PROCEDURES 2023-02-27 05:01:00 Doctor Unassigned, [place] [facility] PHYSICIAN ORDERS 2023-02-09 05:01:00 Doctor Unas signed, [place] [facility] US ABDOMEN LIMITED 2022-07-21 13:32:42 Haresh Iglesias [facility] Encounters Start Date/Time End Date/Time Encounter Type Admission Type Attending Clinicians Care Facility Care Department Encounter ID Source 2025-08-09 12:51:47 2025-08-09 23:59:00 Hospital Encounter HARESH PATRICK [facility] 1.2840.114 350.1.13.10 4.2.7.2.686 [id number] [facility] 2025-08-04 13:00:00 2025-08-04 13:37:14 Office Visit HARESH PATRICK [facility] 1.284.114 350.1.13.10 4.2.7.2.686 [id number] [facility] 2025-01-24 08:02:39 2025-01-24 23:59:00 Outpatient R HARESH IGLESIAS [facility] [id number] [facility] 2025-01-24 08:02:39 2025-01-24 23:59:00 Hospital Encounter Haresh Iglesias [facility] 1.2840.114 350.1.13.10 4.2.7.2.686 [id number] [facility] 2025-01-17 10:00:00 2025-01-17 10:00:00 Outpatient R DEBRA-CHEL SVICKYKATIE DEBRA-CHEL SVICKYKATIE [facility] [id number] [facility] 2025-01-10 00:00:00 2025-01-10 16:57:10 Telephone [facility] [place] [place] [facility] [id number] 350.1.13.10 4.2.7.2.686 [id number] [facility] 2025-01-10 00:00:00 2025-01-10 11:42:54 Case Management Debra-Chel s Katie [facility] N[facility] BUILD[facility] [id number] 350.1.13.10 4.2.7.2.686 [id number] [facility] 2025-01-09 15:30:00 2025-01-09 15:53:14 Office Visit Jay-Chel s, Katie [facility] [id number] 350.1.13.10 4.2.7.2.686 [id number] [facility] 2025-01-09 15:15:00 2025-01-09 15:30:00 Sports Bookmaker Visit 2, Adc Lab Jay-Chel s, Katie 2, Adc Lab [facility] BUILD[facility] 1.284.114 350.1.13.10 4.2.7.2.686 [id number] [facility] 2025-01-09 15:15:00 2025-01-09 15:15:00 Outpatient R JAY-CHEL S, KATIE JAY-CHEL S, KATIE [facility] [id number] [facility] 2024-05-02 00:00:00 2025-01-07 07:33:41 Orders Only Doctor Unassigned, [place] Doctor Unassigned, [place] [facility] 1.84.114 350.1.13.10 4.2.7.2.686 [id number] [facility] 2025-01-06 15:00:00 2025-01-06 15:49:46 Outpatient R JAY-CHEL S, KATIE JAY-CHEL S, KATIE [facility] [id number] [facility] 2025-01-06 15:00:00 2025-01-06 15:49:46 Office Visit Jay-Chel s, Katie [facility] [id number] 350.1.13.10 4.2.7.2.686 [id number] [facility] 2024-12-27 14:00:00 2024-12-27 14:16:18 Outpatient R CINTHIAHARESH Burrell [facility] [id number] [facility] 2024-12-27 14:00:00 2024-12-27 14:16:18 Office Visit KelsieHaresh [facility] 1.840.114 350.1.13.10 4.2.7.2.686 [id number] [facility] 2024-10-12 13:30:00 2024-10-12 13:30:00 Outpatient R KELSIE HARESH [facility] [id number] [facility] 2024-09-26 15:45:00 2024-09-26 15:51:01 Outpatient R DERICK RODGERS CRAIG [facility] [id number] [facility] 2024-09-26 15:45:00 2024-09-26 15:51:01 [facility] 1.840.114 350.1.13.10 4.2.7.2.686 [id number] [facility] 2024-09-21 09:52:06 2024-09-21 23:59:00 Outpatient R KELSIEMAIDAIE [facility] [id number] [facility] 2024-09-21 09:52:06 2024-09-21 23:59:00 Hospital Encounter CinthiaHaresh burrell [facility] 1.840.114 350.1.13.10 4.2.7.2.686 [id number] [facility] 2024-09-21 09:30:00 2024-09-21 09:52:18 Office Visit KelsieHaresh [facility] 1.840.114 350.1.13.10 4.2.7.2.686 [id number] [facility] 2024-09-21 08:00:00 2024-09-21 08:00:00 Outpatient R HARESH IGLESIAS [facility] [id number] [facility] 2024-09-19 15:45:00 2024-09-19 15:45:00 Outpatient R DERICK RODGERS CRAIG [facility] [id number] [facility] 2024-09-08 00:00:00 2024-09-14 10:27:31 Telephone Cinthiamary Haresh [facility] 1.2840.114 350.1.13.10 4.2.7.2.686 [id number] [facility] 2024-06-21 00:00:00 2024-06-21 15:31:10 Telephone CinthiaHaresh burrell [facility] 1.2840.114 350.1.13.10 4.2.7.2.686 [id number] [facility] 2024-06-20 08:34:34 2024-06-20 23:59:00 Outpatient R HARESH IGLESIAS [facility] [id number] [facility] 2024-06-20 08:34:34 2024-06-20 23:59:00 Hospital Encounter CinthiaHaresh burrell [facility] 1.2840.114 350.1.13.10 4.2.7.2.686 [id number] [facility] 2024-06-13 00:00:00 2024-06-13 13:56:06 Telephone Haresh Iglesias [facility] 1.2840.114 350.1.13.10 4.2.7.2.686 [id number] [facility] 2024-06-08 13:40:11 2024-06-08 23:59:00 Hospital Encounter Haresh Iglesias [facility] 1..114 350.1.13.10 4.2.7.2.686 [id number] [facility] 2024-06-08 13:39:37 2024-06-08 13:39:37 Outpatient R HARESH IGLESIAS [facility] [id number] [facility] 2024-06-08 13:39:37 2024-06-08 13:39:37 Hospital Encounter Haresh Iglesias [facility] 1..114 350.1.13.10 4.2.7.2.686 [id number] [facility] 2024-05-31 00:00:00 2024-05-31 00:00:00 Outpatient R HARESH IGLESIAS [facility] [id number] [facility] 2024-05-25 09:30:00 2024-05-25 09:30:00 Outpatient R HARESH IGLESIAS [facility] [id number] [facility] 2024-05-06 07:03:26 2024-05-06 23:59:00 Outpatient R HARESH IGLESIAS [facility] [id number] [facility] 2024-05-06 07:03:26 2024-05-06 23:59:00 Hospital Encounter Haresh Iglesias [facility] [facility] 1.114 350.1.13.10 4.2.7.2.686 [id number] [facility] 2024-05-02 00:00:00 2024-05-02 09:08:18 Telephone Haresh Iglesias [facility] 1.840.114 350.1.13.10 4.2.7.2.686 [id number] [facility] 2024-04-29 00:00:00 2024-04-29 13:45:[address] [facility] 1.20.114 350.1.13.10 4.2.7.2.686 [id number] [facility] 2024-04-28 08:45:00 2024-04-28 09:00:00 Sports Bookmaker Visit Lab, Fabian VicenteHaresh burrell [facility] 1.2840.114 350.1.13.10 4.2.7.2.686 [id number] [facility] 2024-04-28 08:45:00 2024-04-28 08:58:52 Outpatient R HARESH IGLESIAS [facility] [id number] [facility] 2024-04-28 00:00:00 2024-04-28 08:51:07 Telephone Haresh Iglesias [facility] 1.84.114 350.1.13.10 4.2.7.2.686 [id number] [facility] 2024-04-25 15:30:00 2024-04-25 15:51:43 Outpatient R HARESH IGLESIAS [facility] [id number] [facility] 2024-04-25 15:30:00 2024-04-25 15:51:43 Office Visit CinthiaHaresh burrell [facility] 1.84.114 350.1.13.10 4.2.7.2.686 [id number] [facility] 2023-08-13 08:14:37 2023-08-13 23:59:00 Hospital Encounter Rodgers Derick Tyler [facility] 1.2840.114 350.1.13.10 4.2.7.2.686 [id number] [facility] 2023-08-13 08:00:00 2023-08-13 08:41:51 Outpatient R DELON BROWN [facility] [id number] [facility] 2023-08-13 08:00:00 2023-08-13 08:41:51 Office Visit Derick Rodgers Brett [facility] 1.2.840.114 350.1.13.10 4.2.7.2.686 [id number] [facility] 2023-08-07 08:40:41 2023-08-07 23:59:00 Outpatient R RADIOLOGY [facility] [id number] [facility] 2023-08-07 08:40:41 2023-08-07 23:59:00 Hospital Encounter Radiology [facility] 1..840.114 350.1.13.10 4.2.7.2.686 [id number] [facility] 2023-08-07 00:00:00 2023-08-07 00:00:00 Orders Only Doctor Unassigned, [place] [facility] 1.2.840.114 350.1.13.10 4.2.7.2.686 [id number] [facility] 2023-08-07 00:00:00 2023-08-07 00:00:00 Telephone Derick Rodgers [facility]?RADHAM[facility] 1..840.114 350.1.13.10 4.2.7.2.686 [id number] [facility] 2023-04-14 14:00:00 2023-04-14 14:00:00 Outpatient R HARESH IGLESIAS [facility] [id number] [facility] 2023-04-09 00:00:00 2023-04-09 00:00:00 Patient Secure Msg Doctor Unassigned, [place] [facility] 1.2840.114 350.1.13.10 4.2.7.2.686 [id number] [facility] 2023-04-07 10:15:00 2023-04-07 10:15:00 Outpatient R MIMI KNIGHT CHRISTINE [facility] [id number] [facility] 2023-03-19 09:30:00 2023-03-19 09:30:00 Outpatient R MIMI KNIGHT [facility] [id number] [facility] 2023-03-05 11:00:00 2023-03-05 11:06:26 Office Visit Mimi Knight [facility] 1.2840.114 350.1.13.10 4.2.7.2.686 [id number] [facility] 2023-03-05 09:30:00 2023-03-05 10:46:52 Outpatient LEIDY FISHER [facility] [id number] [facility] 2023-03-05 09:30:00 2023-03-05 10:46:52 Office Visit Monique Pearson David [facility] 1.840.114 350.1.13.10 4.2.7.2.686 [id number] [facility] 2023-03-04 00:00:00 2023-03-04 00:00:00 Patient Secure Msg Doctor Unassigned, [place] [facility] 1.2840.114 350.1.13.10 4.2.7.2.686 [id number] [facility] 2023-03-03 09:30:00 2023-03-03 09:30:00 Outpatient HARESH PATRICK [facility] [id number] [facility] 2023-03-03 00:00:00 2023-03-03 00:00:00 Telephone Katelynn Mimi [facility] 1.840.114 350.1.13.10 4.2.7.2.686 [id number] [facility] 2023-02-27 12:30:00 2023-02-27 13:31:25 Outpatient R MIMI KNIGHT [facility] [id number] [facility] 2023-02-27 00:00:00 2023-02-27 00:00:00 Orders Only Doctor Unassigned, [place] [facility] 1.840.114 350.1.13.10 4.2.7.2.686 [id number] [facility] 2023-02-16 00:00:00 2023-02-16 00:00:00 Telephone Kelsie Haresh [facility] 1..840.114 350.1.13.10 4.2.7.2.686 [id number] [facility] 2023-02-11 13:15:00 2023-02-11 13:15:00 Outpatient R DELON BROWN [facility] [id number] [facility] 2023-02-09 10:30:00 2023-02-09 10:51:46 Outpatient R HARESH IGLESIAS [facility] [id number] [facility] 2023-02-09 10:30:00 2023-02-09 10:51:46 Office Visit Kelsie On license of [facility] 1..840.114 350.1.13.10 4.2.7.2.686 [id number] [facility] 2023-02-09 00:00:00 2023-02-09 00:00:00 Orders Only Doctor Unassigned, [place] [facility] 1.2840.114 350.1.13.10 4.2.7.2.686 [id number] [facility] 2023-02-06 13:00:00 2023-02-06 13:00:00 Outpatient R MIMI KNIGHTMIMI [facility] [id number] [facility] 2023-02-03 15:30:00 2023-02-03 15:53:31 Outpatient R KELSIEHARESH [facility] [id number] [facility] 2023-02-03 15:30:00 2023-02-03 15:53:31 Office Visit KelsieHaresh [facility] 1.2.840.114 350.1.13.10 4.2.7.2.686 [id number] [facility] 2023-01-30 09:31:45 2023-01-30 23:59:00 Outpatient R KELSIEHARESH [facility] [id number] [facility] 2023-01-30 09:30:00 2023-01-30 09:30:00 Office Visit CinthiaHaresh burrell [facility] 1.2.840.114 350.1.13.10 4.2.7.2.686 [id number] [facility] 2022-07-21 07:41:03 2022-07-21 23:59:00 Outpatient R KELSIEMAIDAIE [facility] [id number] [facility] 2022-07-21 07:41:03 2022-07-21 23:59:00 Hospital Encounter KelsieMaidaie [facility] 1..840.114 350.1.13.10 4.2.7.2.686 [id number] [facility] 2022-07-07 00:00:00 2022-07-07 00:00:00 Outpatient R HARESH IGLESIAS [facility] [id number] [facility] 2022-06-16 09:30:00 2022-06-16 09:45:00 Sports Bookmaker Visit Lab, Fabian [facility]varado [facility] 1.114 350.1.13.10 4.2.7.2.686 [id number] [facility] 2022-06-16 09:00:00 2022-06-16 09:34:55 Office Visit Haresh Iglesias [facility] 1.114 350.1.13.10 4.2.7.2.686 [id number] [facility] 2022-06-16 09:00:00 2022-06-16 09:34:55 Outpatient R KELSIE HARESH [facility] [id number] [facility] 2022-06-16 09:30:00 2022-06-16 09:30:00 Outpatient R KELSIEHARESH [facility] [id number] [facility] 2022-06-16 00:00:00 2022-06-16 00:00:00 Orders Only Doctor Unassigned, [place] [facility] 1.114 350.1.13.10 4.2.7.2.686 [id number] [facility] 2022-06-09 00:00:00 2022-06-09 00:00:00 Pre Visit Outreach Melida Cabrera 1.114 350.1.13.10 4.2.7.2.686 [id number] [facility] 2022-06-06 00:00:00 2022-06-06 00:00:00 Abstract Kelsie [facility] 1.114 350.1.13.10 4.2.7.2.686 [id number] [facility] 2022-03-24 00:00:00 2022-03-24 00:00:00 Pre Visit Outreach Angeline Stern 1.284.114 350.1.13.10 4.2.7.2.686 [id number] [facility] 2022-03-03 00:00:00 2022-03-03 00:00:00 Orders Only Doctor Unassigned, [place] [facility] 1..114 350.1.13.10 4.2.7.2.686 [id number] [facility] 2022-01-31 09:36:32 2022-01-31 23:59:00 Outpatient DERICK HERNANDEZ [facility] [id number] [facility] 2022-01-31 09:30:00 2022-01-31 13:05:52 Outpatient R DERICK RODGERS [facility] [id number] [facility] 2022-01-31 09:30:00 2022-01-31 13:05:52 Office Visit Derick Rodgers [facility] 1.840.114 350.1.13.10 4.2.7.2.686 [id number] [facility] 2022-01-28 10:00:00 2022-01-28 10:00:00 Outpatient R DERICK RODGERS [facility] [id number] [facility] 2021-09-27 09:15:00 2021-09-27 11:58:52 Outpatient R DERICK RODGERS [facility] [id number] [facility] 2021-09-27 09:03:09 2021-09-27 11:58:52 Office Visit Derick Rodgers [facility] 1.840.114 350.1.13.10 4.2.7.2.686 [id number] [facility] 2021-09-27 09:15:00 2021-09-27 09:15:00 Outpatient R DERICK RODGERS [facility] [id number] [facility] 2021-09-12 00:00:00 2021-09-12 00:00:00 Telephone Derick Rodgers [facility] hospital Lauro?[facility] 1.84.114 350.1.13.10 4.2.7.2.686 [id number] [facility] 2021-09-12 00:00:00 2021-09-12 00:00:00 Orders Only Doctor Unassigned, [place] [facility] 1.840.114 350.1.13.10 4.2.7.2.686 [id number] [facility] 2021-04-30 10:00:00 2021-04-30 10:00:00 Outpatient AZIZA APARICIO [facility] [id number] [facility] 2021-04-30 00:00:00 2021-04-30 00:00:00 Orders Only Doctor Unassigned, [place] [facility] 1.840.114 350.1.13.10 4.2.7.2.686 [id number] [facility] 2021-04-17 15:00:00 2021-04-17 15:00:00 Outpatient DELON CALIXTO [facility] [id number] [facility] 2021-04-17 14:18:30 2021-04-17 14:33:30 Office Visit Delon Brown [facility] [place] 1.84.114 350.1.13.10 4.2.7.2.686 [id number] [facility] 2021-04-08 16:15:00 2021-04-08 16:15:00 Outpatient DELON CALIXTO [facility] [id number] [facility] 2021-04-08 13:15:44 2021-04-08 13:42:57 Office Visit Derick Rodgers Brett S [facility] Special[facility] delfino [place] 1.2840.114 350.1.13.10 4.2.7.2.686 [id number] [facility] 2021-03-27 07:46:01 2021-03-27 08:01:01 Sports Bookmaker Visit Pob, Adc Lab Main Derick Rodgers [facility] 1.284.114 350.1.13.10 4.2.7.2.686 [id number] [facility] 2021-03-27 07:42:33 2021-03-27 07:42:33 Hospital Encounter Rodgers, Derick [facility] 1.2840.114 350.1.13.10 4.2.7.2.686 [id number] [facility] 2021-03-27 07:42:33 2021-03-27 07:42:33 Outpatient R DERICK RODGERS [facility] [id number] [facility] 2021-03-27 00:00:00 2021-03-27 00:00:00 Outpatient R DERICK RODGERS [facility] [id number] [facility] 2021-03-21 11:00:00 2021-03-21 11:00:00 Outpatient R DERICK RODGERS [facility] [id number] [facility] 2021-03-21 09:24:39 2021-03-21 10:02:37 Office Visit Derick Rodgers [facility] Surgical [facility] 1.284.114 350.1.13.10 4.2.7.2.686 [id number] [facility] 2021-03-21 00:00:00 2021-03-21 00:00:00 Orders Only Doctor Unassigned, [place] [facility] 1.2.840.114 350.1.13.10 4.2.7.2.686 [id number] [facility] 2021-03-14 07:39:47 2021-03-14 23:59:00 Hospital Encounter Derick Rodgers [facility] 1.2.840.114 350.1.13.10 4.2.7.2.686 [id number] [facility] 2021-03-14 00:00:00 2021-03-14 00:00:00 Outpatient R DERICK RODGERS [facility] [id number] [facility] 2021-03-14 00:00:00 2021-03-14 00:00:00 Orders Only Doctor Unassigned, [place] [facility] 1.2.840.114 350.1.13.10 4.2.7.2.686 [id number] [facility] 2021-03-01 08:19:32 2021-03-01 23:59:00 Hospital Encounter Derick Rodgers [facility] Surgical [facility] 1.2.840.114 350.1.13.10 4.2.7.2.686 [id number] [facility] 2021-03-01 07:59:49 2021-03-01 08:45:46 Office Visit Derick Rodgers Tyler [facility] 1.2.840.114 350.1.13.10 4.2.7.2.686 [id number] [facility] 2021-03-01 08:15:00 2021-03-01 08:15:00 Outpatient R DERICK RODGERS [facility] [id number] [facility] 2021-02-25 15:15:00 2021-02-25 15:15:00 Outpatient R DERICK RODGERS [facility] [id number] [facility] 2020-05-26 00:00:00 2020-05-26 00:00:00 Orders Only Doctor Unassigned, [place] [facility] 1.2840.114 350.1.13.10 4.2.7.2.686 [id number] [facility] 2020-03-04 00:00:00 2020-03-04 00:00:00 Telephone [facility] 1.20.114 350.1.13.10 4.2.7.2.686 [id number] [facility] 2020-03-04 00:00:00 2020-03-04 00:00:00 Telephone [facility] 1.2840.114 350.1.13.10 4.2.7.2.686 [id number] 2020-03-03 09:20:00 2020-03-03 09:20:00 Outpatient R UNKNOWN, ATTENDING [facility] [id number] [facility] 2020-03-03 08:43:29 2020-03-03 09:09:31 Urgent Care Pob1, Acute Care Clinic Unknown, Attending Dano Rodriguez [facility] Office [facility] 1.0.114 350.1.13.10 4.2.7.2.686 [id number] [facility] 2020-03-03 08:43:29 2020-03-03 09:09:31 Urgent Care Pob1, Acute Care Clinic [facility] 1.840.114 350.1.13.10 4.2.7.2.686 [id number] 2020-03-03 00:00:00 2020-03-03 00:00:00 Orders Only Doctor Unassigned, [place] [facility] 1.2840.114 350.1.13.10 4.2.7.2.686 [id number] [facility] 2020-03-03 00:00:00 2020-03-03 00:00:00 Orders Only Doctor Unassigned, [place] [facility] 1.2.840.114 350.1.13.10 4.2.7.2.686 [id number] Results Test Description Test Time Test Comments Results Result Comments Source CT Head wo contrast 19:32:51 CT HEAD WO CONTRAST HISTORY:70 years old Female with S/P fall COMPARISON: None TECHNIQUE: Noncontrast axial images of the head, with coronal and sagittalreformats. FINDINGS: The ventricles and cerebral sulci are normal in caliber and configuration.No hydrocephalus, midline shift or pathological extra-axial fluidcollection is present. The basal cisterns are unremarkable. There is no acute intracranial hemorrhage or significant mass effect. Noparenchymal attenuation abnormality. The kramer-white matter differentiationis preserved. The mastoid air cells and paranasal air sinuses are clear. The calvariumand central skull base are unremarkable. [facility] BI Diagnostic tomosynthesis right 17:39:31 Examination:BI Diagnostic tomosynthesis right History:Patient is [...] cm from the nipple seen on RCC 21/51, R ML 26/54, R SML 21/44 and R SCC 9/40 is mammographically stable dating back to at least 2019, benign. ?Of note, no prior sonographic correlate was identified for this finding. No new suspicious mass, calcifications or architectural distortion was identified. There is a marker from previous needle biopsy. Impression: RightNo mammographic evidence of malignancy. Recommendation:Annual mammographic follow-up - Right These findings and recommendations were discussed with the patient at the conclusion of today's examination. BI-RADS Category:Right 2 - Benign Overall: Benign [facility] CORE BREAST BIOPSY RIGHT 2024-06-20 [...] the entire procedure and/or during the gonzalez components.[facility] ULTRASOUND BREAST COMPLETE RIGHT 2024-06-08 22:26:15Examination:BI DIAGNOSTIC TOMOSYNTHESIS [facility] ULTRASOUND BREAST COMPLETE RIGHT History:Patient is69 year [...] Should Be Considered - Low Suspicion for MalignancyUnHouston Methodist Baytown HospitalBI DIAGNOSTIC TOMOSYNTHESIS [id number] 22:26:15Examination:BI DIAGNOSTIC TOMOSYNTHESIS RIGHTBI ULTRASOUND BREAST COMPLETE [...] Should Be Considered - Low Suspicion for MalignancyUnHouston Methodist Baytown HospitalUS FOOT [id number] 21:12:09 EXAM: US FOOT RIGHT HISTORY: 69 [...] axis. Color Doppler flowdemonstrates no internal vascularity .[facility] Notes Date/Time Note Provider Source 2025-01-24 09:00:00 Mammogram normal , repeat in 1 year [facility] 2025-01-10 16:52:47 Name and verified, pt states she wants to schedule a visit to discuss results with Dr. Brandon after she completes her medications next week. Pt does not want to discuss with me at this time. Appt made for 01/17 Cassidy Kwok RN 01/10/2025 4:56 PM RAFT CABIN CLEANER Cassidy Kwok RN [facility] 2025-01-10 14:14:46 Rizwan Rosenthal is a 69 year old female patient called state she has some questions regarding test results. Asking to speak with Debra Shields. RAFT CABIN CLEANER Miranda Daly [facility] 2025-01-10 11:43:20 Rizwan Rosenthal is a 69 year old female Calling to go over her test results, pt states she saw them via [employer] and has questions for her provider. RAFT CABIN CLEANER Linda Flores [facility] 2025-01-09 15:15:00 Images from the original note were not included. Venipuncture collection performed by clean technique on the left anticubitus. Total of 1 attempts were made. Slight pressure and a bandage/dressing were applied to the site(s). The patient experienced no complications. The following specimens were processed according to instructions and sent to [facility] laboratories per lab order on : LT BLUE SST RED LAV PPT DK GREEN (LiHep) DK GREEN (SodH) KRAMER DK BLUE (K2) DK BLUE (S) ACD Blood Culture NIPT/NTD Debra Shields only. [facility] 2024-09-14 10:26:57 Closing encounter, patient has not returned any calls. Shayla Serrano MA [facility] 2024-09-13 10:05:05 Attempted to contact patient. No answer. Left message to call back. Shirley Marcum LVN 09/13/2024 10:05 AM Shirley Marcum LVN [facility] 2024-09-08 09:07:53 Attempted to contact patient. No answer. Left message to call back. Shirley Marcum LVN 09/08/2024 9:07 AM T [facility] 2024-09-08 08:59:52 Pt states she has been having pain in her upper calf for several weeks now and it has not gone away. She also has pain behind her knee. Please Advise. Gege Hidalgo [facility] 2024-06-21 15:29:51 US of right breast to be done in 6 months for stability Order placed [facility] 2024-06-13 13:55:26 Spoke with Patient and clarified that the order was placed by SHYANN Pacheco. Patient voiced understanding. Leonela Lindo RN [facility] 2024-06-13 10:39:03 Patient would like a call back soon her test is scheduled for 06/20/24 and wants to make sure she is good to go. Please call pt to [phone] she is very anxious about this. Jerri Ashby [facility] 2024-06-13 08:22:43 Rizwan Rosenthal is a 69 year old female would like to speak with nurse to confirm she has the correct orders placed for her upcoming 06/20 Biopsy. She would also like to schedule a follow up with PCP after biopsy. Please assist with [employer] if possible [phone] (home) Emigdio Waters [facility] 2024-05-02 10:43:27 Addended by: HARESH IGLESIAS. on: 05/02/2024 10:43 AM Modules accepted: Orders [facility] 2024-05-02 10:42:59 Order was placed , we will upload results of lucie into chart for radiologist to compare T [facility] 2024-05-02 09:39:51 Spoke with Patient and she is requesting that SHYANN Pacheco place the order and that she would like to do it through [facility]. Leonela Lindo RN [facility] 2024-05-02 09:04:26 Mammogram results are in from [facility] It is recommending US with spot compression of right breast. Has this been ordered for pt hy a Amy Davey COUNTER CASER? Or do I need to order? T [facility] 2024-04-29 14:44:30 info T [facility] 2024-04-29 13:43:28 Patient dropped of a copy of mammogram report done at [facility] provider requested pt to drop off, placed in providers box for review. Patient would like a call back if there are any questions or concerns. Jerri Ashby [facility] 2024-04-28 08:48:29 Contacted patient and notified her the order was placed on 04/25/24. Gave number to [facility] [phone] and advised her to ask for radiology. She verbalized understanding. US FOOT RIGHT [[id number]] (Order [id number]) IMAGING Date: 04/25/2024 Department: [facility] Ordering/Authorizing: Haresh Iglesias FNP Patient Information Patient Name Rizwan Rosenthal Legal Sex Female (age) 1955 (69 year old) Electronically Signed By Department Dept Phone Haresh Iglesias FNP [facility] [phone] Future Order Information Expected Expires 04/25/2024 04/25/2025 Dupuytren contracture Comment: acute stable Plan: US FOOT RIGHT, meloxicam 7.5 mg tablet Shirley Marcum LVN [facility] 2024-04-28 08:45:00 Images from the original note were not included. Venipuncture collection performed by clean technique on the left anticubitus. Total of 1 attempts were made. Slight pressure and a bandage/dressing were applied to the site(s). The patient experienced no complications. The following specimens were processed according to instructions and sent to [facility] laboratories per lab order on 04/28/2024 : LT BLUE SST 1 RED LAV 2 PPT DK GREEN (LiHep) DK GREEN (SodH) KRAMER DK BLUE (K2) DK BLUE (S) ACD Blood Culture NIPT/NTD [facility] 2024-04-28 08:40:26 Pt came into the office on 04/25/2024 and stated Kelsie was going to place and order for an ultrasound for her foot. No orders placed. She is requesting a call back from her nurse once the orders has been placed. Melida Grover [facility] 2023-08-07 14:06:12 Formatting of this n ote might be different from the original. Pt calling back to see if she was able to get an appointment for today. Georgette Mendoza [facility] 2023-08-07 11:55:02 Formatting of this n ote might be different from the original. Pt calling because she broke her toe a month ago and its not health properly. Pt wants to know if she can be put in today or Thursday to have this looked at [facility]
[2025-08-19] MEDS ORDERED: MAGNES/ALUMIN/SIMET 30ML UCUP ONE (08:18)
[2025-08-19] MEDS ORDERED: FAMOTIDINE 20 MG/2 ML VIAL IV ONE (08:18)
[2025-08-19] MEDS ORDERED: LIDOCAINE VISCOUS 2% 10ML ORAL SOLN ONE (08:19)
[2025-08-19 08:24] LABS: Absolute Lymphocytes (CBC) 1.7 K/uL (0.7-4.9); Hematocrit 36.7 % (36.0-45.0); Hemoglobin 12.6 g/dL (12.0-15.0); MCH 29.9 pg (27.0-35.0); MCHC 34.3 g/dL (32.0-36.0); MCV 87.1 fL (80-100); MPV 8.7 fL (7.6-11.3); Nucleated RBC Absolute Count 0.0 (0-0); Nucleated Red Blood Cells % 0.0 % (0-0); RBC Red Blood Cell Count 4.21 M/uL (3.86-4.86); White Blood Count 5.80 thou/uL (4.3-10.9)
--- NOTE | 2025-08-19 08:29 | RAD REPORT ---
Procedure: Chest Single View HISTORY: Abdominal pain COMPARISON: January 2025 FINDINGS: The lungs appear clear of acute infiltrate. No significant pleural effusion noted. The heart is normal size. IMPRESSION: No acute abnormality is displayed.
[2025-08-19 08:42] LABS: ALT/SGPT 18 U/L (13-56); AST/SGOT 22 U/L (15-37); Albumin 3.6 g/dL (3.4-5.0); Albumin/Globulin Ratio 1.2 (1.1-1.8); Alkaline Phosphatase 64 U/L (45-117); Anion Gap 9.9 mEq/L (5.0-15.0); BUN Blood Urea Nitrogen 13 mg/dL (7-18); Bilirubin Indirect, Calculated 0.3 mg/dL (0.2-0.8); Globulin 2.9 g/dL (2.3-3.5); Glucose Level 96 mg/dL (74-106); NT PRO-BNP 94 pg/mL (<125); Potassium 3.9 mEq/L (3.5-5.1); Troponin High Sensitivity 8.5 pg/mL (<58.9)
--- NOTE | 2025-08-19 09:27 | RAD REPORT ---
EXAM: CTA of the chest, abdomen and pelvis HISTORY: Chest and abdominal pain COMPARISON: January 2025 TECHNIQUE: Multiple contiguous axial images were obtained a CTA of the chest and abdomen with contras t per aortic dissection protocol. Sagittal and coronal 3-D MIP reformats were performed. 100 cc Isovue-370 administered intravenously.Automated exposure control, adjustment of the mA and kV accordi ng to the patient size, and iterative reconstruction. Unless otherwise specified, incidental findings do not require dedicated imaging follow-up. FINDINGS: An aortic dissection not seen. No aortic aneurysm Celiac, SMA and ZOE do not demonstrate a significant abnormality. Renal arteries do not demonstrate a significant abnormality. 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 Normal appendix. No adnexal mass. Small umbilical hernia Moderate to large amount of stool throughout the colon IMPRESSION: No evidence of an aortic dissection Moderate to large amount stool throughout the colon
--- NOTE | 2025-08-19 10:31 | EDPHYS ---
Physician Documentation [facility] Name: Rizwan Werner Age: 70 yrs Sex: Female : 1955 Arrival Date: 08/19/2025 Time: 07:41 Bed 6 Private MD: ED Physician Suraj Payne HPI: 08/19 09:02 This 70 yrs old Female presents to ER via Ambulatory with complaints of Chest Pain, rn Back Pain. 09:02 Patient reports central burning chest pain, associated with upper back pain that began rn yesterday. Intermittent and last for seconds at a time. Recent shoulder injury and has been taking Aleve for pain. No trauma to the chest. No difficulty breathing. No pleurisy or hemoptysis. No history of DVT or PE. No abdominal pain. No vomiting or diarrhea. No fever or chills. Does not feel sick. States had a stress test with cardiology 1 year ago and was normal they did not recommend further intervention.. Historical: - Allergies: 07:59 Hydrocodone-Acetaminophen (Vomiting); af3 - PSHx: 07:59 section; knee meniscus; af3 - Immunization history:: Adult Immunizations. - Infectious Disease History:: Denies. - Social history:: Smoking status: unknown. - Family history:: not pertinent. - Hospitalizations: : No recent hospitalization is reported. ROS: 09:02 Constitutional: Negative for fever, chills, and weight loss, Cardiovascular: Positive rn for chest pain Respiratory: Negative for shortness of breath, cough, wheezing, and pleuritic chest pain, Abdomen/GI: Negative for abdominal pain, nausea, vomiting, diarrhea, and constipation, Back: Positive for upper back pain MS/Extremity: Negative for injury and deformity, Neuro: Negative for headache, weakness, numbness, tingling, and seizure, Exam: 09:02 ECG was reviewed by the Attending Physician. rn 09:02 Constitutional: This is a well developed, well nourished patient who is awake, alert, rn and in no acute distress. Cardiovascular: Regular rate and rhythm. No pulse deficits. Respiratory: Clear bilateral breath sounds. No tachypnea or retractions noted. No reproducible chest pain with deep inspiration Abdomen/GI: Soft, nontender, no peritoneal signs. Back: No spinal tenderness. No costovertebral tenderness. Full range of motion. MS/ Extremity: Pulses equal, no cyanosis. Neuro: Awake and alert, GCS 15 Vital Signs: 07:57 BP 107 / 88; Pulse 63; Resp 18; Pulse Ox 99% on R/A; Weight 67.59 kg; Height 5 ft. 3 af3 in. ; Pain 2/10; 08:30 BP 128 / 88; Pulse 63; Resp 16; Pulse Ox 100% on R/A; cm10 09:33 BP 150 / 75; Pulse 61; Resp 16; Pulse Ox 100% on R/A; cm10 10:00 BP 132 / 81; Pulse 68; Resp 16; Pulse Ox 99% ; cm10 10:32 BP 154 / 91; Pulse 63; Resp 16; Pulse Ox 100% on R/A; cm10 07:57 Body Mass Index 26.39 (67.59 kg, 160.02 cm) af3 07:57 Pain Scale: Adult af3 MDM: 07:44 Medical Screening Exam initiated rn 10:01 Differential diagnosis: acute myocardial infarction, acute pericarditis, anxiety, chest rn wall pain, costochondritis, esophagitis, gastritis, gastroesophageal reflux disease (GERD), peptic ulcer disease, pneumothorax. HEART Score: History: Slightly Suspicious (0), ECG: Normal (0), Age: > or = 65 years (2), Risk Factors: 1 or 2 risk factors (1), Troponin: < or = 1 x Normal Limit (0), Total Score = 3. Data reviewed: vital signs, nurses notes, lab test result(s), EKG, radiologic studies, CT scan, plain films. Independent interpretation of the following test(s) in the Emergency Department EKG: See my EKG interpretation above X-Ray: My interpretation is Chest x-ray images negative for pneumonia or pneumothorax per my interpretation. fish machine feeder: rate is 63 beats/min, Rhythm is normal sinus rhythm, regular, with no ectopy, Interpretation: normal rate, normal rhythm. Counseling: I had a detailed discussion with the patient and/or guardian regarding the historical points, exam findings, and any diagnostic results supporting the discharge/admit diagnosis, lab results, radiology results, the need for outpatient follow up, to return to the emergency department if symptoms worsen or persist or if there are any questions or concerns that arise at home. ED course: No acute findings and workup. Improved with antacid treatment here. Patient states has been under a lot of stress with multiple family members in the hospital and sleeping in the hospital, could be musculoskeletal versus acid related and stress related. Will get repeat troponin and if negative discharge chest patient states had negative stress test 1 year ago, chest pain is intermittent and lasts only for seconds. CT aorta negative for dissection or other acute complications. I have personally reviewed all of the results, including but not limited to blood tests and imaging deemed necessary to safely discharge this patient at this time. All results given to and printed out for patient. I personally went over all the results with the patient and answered all questions. Patient will follow-up with PCP and or specialist as discussed. Return precautions given and understood.. 10:30 Special discussion: Based on the patient's history, exam, and Dx evaluation, there is rn no indication for emergent intervention or inpatient Tx. It is understood by the patient/guardian that if the Sx's persist or worsen they need to return immediately for re-evaluation. I discussed with the patient/guardian in detail that at this point there is no indication for admission to the hospital. It is understood, however, that if the symptoms persist or worsen the patient needs to return immediately for re-evaluation. 08/19 07:56 Order name: Basic Metabolic Panel; Complete Time: 08:54 08/19 07:56 Order name: CBC with Diff; Complete Time: 08:08/19 07:56 Order name: LFT's; Complete Time: 08:54 08/19 07:56 Order name: NT PRO-BNP; Complete Time: 08:54 08/19 07:56 Order name: Troponin HS; Complete Time: 08:54 08/19 09:30 Order name: Troponin High Sensitivity; Complete Time: 10:30 08/19 07:56 Order name: XRAY Chest (1 view); Complete Time: 08:31 08/19 07:56 Order name: CT Aorta for Dissection; Complete Time: 09:30 08/19 07:56 Order name: EKG; Complete Time: 07:57 08/19 07:56 Order name: Cardiac monitoring; Complete Time: 08:03 08/19 07:56 Order name: EKG - Nurse/Tech; Complete Time: 08:03 08/19 07:56 Order name: IV Saline Lock; Complete Time: 08:12 08/19 07:56 Order name: Labs collected and sent; Complete Time: 08:12 rn 08/19 07:56 Order name: O2 Per Protocol; Complete Time: 08:03 rn 08/19 07:56 Order name: O2 Sat Monitoring; Complete Time: 08:03 rn EC:02 Rate is 60 beats/min. Rhythm is regular. QRS [place] is Normal. [place] interval is normal. QRS rn interval is normal. QT interval is normal. No Q waves. T waves are Normal. No ST changes noted. Clinical impression: NSR w/ Non-specific ST/T Changes. Interpreted by me. Reviewed by me. Administered Medications: 08:32 Drug: Famotidine IVP 20 mg IVP once; dilute with 10 mL 0.9% NaCl; give over 2 minutes cm10 Route: IVP; Site: right forearm; 09:30 Follow up: Response: No adverse reaction cm10 08:32 Drug: GI Cocktail without - (Maalox PO 30 ml, Lidocaine Mucous Membrane 2 % 15 cm10 ml) PO once Route: PO; 09:30 Follow up: Response: No adverse reaction cm10 Disposition Summary: 08/19/25 10:30 Discharge Ordered Notes: Location: Home rn Problem: new rn Symptoms: have improved rn Condition: Stable rn Diagnosis - Chest pain, unspecified rn Followup: rn - With: Private Physician - When: As needed - Reason: Recheck today's complaints, Re-evaluation by your physician Discharge Instructions: - Discharge Summary Sheet rn - Nonspecific Chest Pain, Adult rn Forms: - Medication Reconciliation Form rn - Antibiotic technology risk intern - Prescription Opioid Use rn - Patient Portal Instructions rn - Leadership Thank You Letter rn Signatures: Dispatcher [employer] [facility] Suraj Payne MD MD rn Lewis, Lynsay, RN RN ll1 Faith Kwok RN RN cm10 Tatiana Khanna RN RN af3 Corrections: (The following items were deleted from the chart) 07:57 07:57 Angio Aorta For Dissection+CT.RAD.BRZ ordered. [facility] EDOK 08:01 07:59 Allergies: No Known Allergies; af3 af3
--- NOTE | 2025-08-19 10:31 | ER ---
Nurse's Notes [facility] Name: Rizwan Werner Age: 70 yrs Sex: Female : 1955 Arrival Date: 08/19/2025 Time: 07:41 Bed 6 Private MD: Diagnosis: Chest pain, unspecified Presentation: 08/19 07:57 Chief complaint: Patient states: sharp, intermittent burning chest pain started this af3 morning, back pain started yesterday morning. Coronavirus screen: At this time, the client does not indicate any symptoms associated with coronavirus-19. Ebola Screen: No symptoms or risks identified at this time. Initial Sepsis Screen: Does the patient meet any 2 criteria? No. Patient's initial sepsis screen is negative. Does the patient have a suspected source of infection? No. Patient's initial sepsis screen is negative. Risk Assessment: Do you want to hurt yourself or someone else? Patient reports no desire to harm self or others. Onset of symptoms was August 18, 2025. 07:57 Method Of Arrival: Ambulatory af3 07:57 Acuity: JERALD 3 af3 Triage Assessment: 07:59 General: Appears in no apparent distress. comfortable, well groomed, well developed, af3 Behavior is calm, cooperative, appropriate for age. Pain: Denies pain. Neuro: Level of Consciousness is awake, alert, obeys commands, Oriented to person, place, time, situation, Appropriate for age. Cardiovascular: Patient's skin is warm and dry. Respiratory: Airway is patent is compromised Respiratory effort is even, unlabored, Respiratory pattern is regular, symmetrical. Historical: - Allergies: 07:59 Hydrocodone-Acetaminophen (Vomiting); af3 - PSHx: 07:59 section; knee meniscus; af3 - Immunization history:: Adult Immunizations. - Infectious Disease History:: Denies. - Social history:: Smoking status: unknown. - Family history:: not pertinent. - Hospitalizations: : No recent hospitalization is reported. Screenin:[facility] ED Fall Risk Assessment (Adult) History of falling in the last 3 months, cm10 including since admission No falls in past 3 months (0 pts) Confusion or Disorientation No (0 pts) Intoxicated or Sedated No (0 pts) Impaired Gait No (0 pts) Mobility Assist Device Used No (0 pt) Altered Elimination No (0 pt) Score/Fall Risk Level 0 - 2 = Low Risk Oriented to surroundings, Maintained a safe environment, Hourly rounding (assess needs \T\ fall precautionary measures) done. Abuse screen: Denies threats or abuse. Denies injuries from another. Nutritional screening: No deficits noted. Tuberculosis screening: No symptoms or risk factors identified. Assessment: 08:15 General: Appears in no apparent distress. comfortable, Behavior is calm, cooperative. cm10 Pain: Complains of pain in chest Pain does not radiate. Pain currently is 2 out of 10 on a pain scale. Quality of pain is described as sharp, Pain began 1 day ago. Neuro: No deficits noted. Level of Consciousness is awake, alert, obeys commands, Oriented to person, place, time, situation, Appropriate for age. Cardiovascular: Heart tones present Patient's skin is warm and dry. Rhythm is regular. Respiratory: No deficits noted. Airway is patent Respiratory effort is even, unlabored, Respiratory pattern is regular, symmetrical, Breath sounds are clear bilaterally. Musculoskeletal: No deficits noted. Circulation, motion, and sensation intact. Range of motion: intact in all extremities. 09:33 Reassessment: Patient appears in no apparent distress at this time. Patient and/or cm10 family updated on plan of care and expected duration. Pain level reassessed. Patient is alert, oriented x 3, equal unlabored respirations, skin warm/dry/pink. 10:30 Reassessment: Patient appears in no apparent distress at this time. Patient and/or cm10 family updated on plan of care and expected duration. Pain level reassessed. Patient is alert, oriented x 3, equal unlabored respirations, skin warm/dry/pink. Vital Signs: 07:57 BP 107 / 88; Pulse 63; Resp 18; Pulse Ox 99% on R/A; Weight 67.59 kg; Height 5 ft. 3 af3 in. ; Pain 2/10; 08:30 BP 128 / 88; Pulse 63; Resp 16; Pulse Ox 100% on R/A; cm10 09:33 BP 150 / 75; Pulse 61; Resp 16; Pulse Ox 100% on R/A; cm10 10:00 BP 132 / 81; Pulse 68; Resp 16; Pulse Ox 99% ; cm10 10:32 BP 154 / 91; Pulse 63; Resp 16; Pulse Ox 100% on R/A; cm10 07:57 Body Mass Index 26.39 (67.59 kg, 160.02 cm) af3 07:57 Pain Scale: Adult af3 ED Course: 07:43 Patient arrived in ED. am2 07:44 Suraj Payne MD is Attending Physician. rn 07:45 Arm band placed on Patient placed in an exam room, on a stretcher. ll1 07:56 Faith Kwok, RN is Primary Nurse. cm10 07:59 Triage completed. af3 08:12 Basic Metabolic Panel Sent. cm10 08:12 CBC with Diff Sent. cm10 08:12 LFT's Sent. cm10 08:12 NT PRO-BNP Sent. cm10 08:12 Troponin HS Sent. cm10 08:12 Initial lab(s) drawn, by me, sent to lab. EKG done, by ED staff, reviewed by Faith Kwok RN. Inserted saline lock: 20 gauge in right forearm, using aseptic technique. Blood collected. Flushed with 10 mL NS. Patient maintains SpO2 saturation greater than 95% on room air. 08:15 Patient has correct armband on for positive identification. Bed in low position. Call cm10 light in reach. Side rails up X 1. Client placed on continuous cardiac and pulse oximetry monitoring. NIBP monitoring applied. environmental monitoring specialist on. 08:17 XRAY Chest (1 view) In Process Unspecified. EDMS 09:08 CT Aorta for Dissection In Process Unspecified. EDMS 09:46 Troponin High Sensitivity Sent. cm10 10:45 Provided Education on: Follow-up instructions. cm10 10:45 No provider procedures requiring assistance completed. IV discontinued, intact, cm10 bleeding controlled, No redness/swelling at site. Pressure dressing applied. Administered Medications: 08:32 Drug: Famotidine IVP 20 mg IVP once; dilute with 10 mL 0.9% NaCl; give over 2 minutes cm10 Route: IVP; Site: right forearm; 09:30 Follow up: Response: No adverse reaction cm10 08:32 Drug: GI Cocktail without - (Maalox PO 30 ml, Lidocaine Mucous Membrane 2 % 15 cm10 ml) PO once Route: PO; 09:30 Follow up: Response: No adverse reaction cm10 Medication: 10:45 VIS not applicable for this client. cm10 Outcome: 10:30 Discharge ordered by . rn 10:45 Discharged to home ambulatory, with significant other, cm10 10:45 Condition: good 10:45 Discharge instructions given to patient, Instructed on discharge instructions, follow up and referral plans. Demonstrated understanding of instructions, follow-up care, 10:45 Patient left the ED. cm10 Signatures: Dispatcher [employer] EDMS Suraj Payne MD MD rn Moreno, Amanda am2 Lewis, Lynsay, RN RN 1 Faith Kwok RN RN 10 Tatiana Khanna RN RN af3 Corrections: (The following items were deleted from the chart) 08:01 07:59 Allergies: No Known Allergies; af3 af3
[2025-08-19 10:56] VITALS: BP 154/91; O2SAT 100
== END 2025-08-19 10:45 | disposition home or self-care (01) ==
LOC: ER 07:41
DX: R07.9 Chest pain, unspecified (principal); M54.9 Dorsalgia, unspecified; Z88.5 Allergy status to narcotic agent
CPT/HCPCS: 93005; 85025; 80048; 36415; 80076; 84484 ×2; 83880; 71275; 74175; 71045; 96374; 99285; Q9967

== ENCOUNTER 2025-09-08 08:06 | Day surgery (SDC) | payer OTHER ==
[2025-09-08] MEDS: Ringers Lactate 1,000 ML IV ONE (09:15)
[2025-09-08 09:24] LABS: PT Prothrombin Time 11.3 SECONDS (10-13.0); PTT, Activated Partial Thromb 29.0 SECONDS (27.2-37.4); Protime INR 1.0
[2025-09-08] MEDS ORDERED: LIDOCAINE 1% MPF 5 ML VIAL ONE (09:35)
[2025-09-08] MEDS ORDERED: MIDAZOLAM HCL 2 MG/2 ML INJ ONE (09:36)
[2025-09-08] MEDS ORDERED: EPINEPHRINE 1 MG/ML VIAL ONE (09:36)
[2025-09-08] MEDS ORDERED: BUPIVACAINE 0.5% PF 10 ML VIAL ONE (09:36)
[2025-09-08] MEDS ORDERED: FENTANYL CITR 100 MCG/2 ML ONE (09:36)
[2025-09-08] MEDS ORDERED: LIDOCAINE 2% MPF 5 ML VIAL ONE (11:02)
[2025-09-08] MEDS ORDERED: KETOROLAC 30 MG/ML INJ ONE (11:02)
[2025-09-08] MEDS ORDERED: ROCURONIUM 50 MG/5 ML VIAL IV ONE (11:02)
[2025-09-08] MEDS ORDERED: ONDANSETRON 4 MG/2 ML VIAL ONE (11:02)
[2025-09-08] MEDS: CEFAZOLIN SODIUM 1 GM/VIAL ONE (11:55)
[2025-09-08] MEDS ORDERED: NS 0.9% VIAL 20 ML ONE (12:25)
[2025-09-08] MEDS: EPINEPHRINE 1 MG/ML VIAL ONE (12:35)
[2025-09-08] MEDS ORDERED: NEOSTIGMINE 1 MG/ML -10 ML VIAL ONE (13:37)
[2025-09-08] MEDS ORDERED: GLYCOPYRROLATE 0.2 MG/ML SYR ONE (13:37)
--- NOTE | 2025-09-08 13:48 | P.BOP ---
Preoperative diagnosis: Right shoulder rotator cuff tear, biceps tendinitis, impingement syndrome Postoperative diagnosis: Same, right shoulder SLAP tear Primary procedure: Right shoulder arthroscopic rotator cuff repair Secondary procedure: Right shoulder arthroscopic SLAP debridement with biceps tenotomy Other procedure(s): Right shoulder arthroscopic subacromial decompression Diagnostic Imaging Manager: NONE,NONE Estimated blood loss: 5 cc Specimen: None Findings: See dictation Anesthesia: General Complications: None Implants: 1-5.5 mm Arthrex corkscrew, 2-4.75 mm Arthrex swivel lock Fluids & blood products: Per anesthesia record Transferred to: Recovery Room Condition: Good
--- NOTE | 2025-09-08 13:52 | P.OP ---
Preoperative diagnosis: Right shoulder rotator cuff tear, biceps tendinitis, impingement syndrome Postoperative diagnosis: Same, right shoulder SLAP tear Primary procedure: Right shoulder arthroscopic rotator cuff repair Secondary procedure: Right shoulder arthroscopic SLAP debridement with biceps tenotomy Other procedure(s): Right shoulder arthroscopic subacromial decompression Anesthesia: General Estimated blood loss: 5 cc Specimen: None Findings: See dictation Operative Technique: Indication For Procedure: Rizwan is a 70-year-old female who presented to my clinic with signs, symptoms, and MRI findings consistent with a right shoulder full-thickness rotator cuff tear. I discussed with the patient risks and benefits associated with operative and nonoperative treatment. She expressed understanding and elected to proceed with operative treatment. Description Of Procedure: After informed consent was obtained, the patient was identified in the preoperative holding area. The right upper extremity was marked. The patient then was brought to the PACU where she underwent a right- sided interscalene block performed by Anesthesia. The patient was brought back to the operating room, transferred to the operative table in supine fashion, placed under general endotracheal anesthesia. She was then placed in a beach ch air position with her extremities well padded. The right upper extremity was then prepped and draped in usual sterile fashion. A time-out was initiated. The correct patient and procedure were performed and identified. The patient did receive preoperative prophylactic antibiotics. Via the posterior portal position, a spinal needle was introduced in the glenohumeral joint and the shoulder was injected with 30 cc of normal saline to distend the capsule. A stab incision was made posteriorly and a posterior portal was created. Arthroscope was brought in via the posterior portal position and diagnostic arthroscopy was performed. Under direct visualization, an anterior portal and cannula were created. The patient was noted to have a type 1 SLAP tear, which was debrided using the arthroscopic shaver. There were no significant instability of the superior labrum or anterior posterior labrum, which were stable to probe. There was fraying and tenosynovitis of the bicipital tendon and a biceps tenotomy was performed using a meniscal biter. The anchor was then debrided using the arthroscopic shaver. Subscapularis was found to have a small tear over the superior aspect of the tendon and this was debrided with an arthroscopic shaver and was found to be stable to probe after the debridement. There were no loose bodies within the axillary pouch. The patient was noted to have a full-thickness tear of the supraspinatus. A lateral portal was created and an arthroscopic shaver was then used to debride the greater tuberosity and undersurface of the rotator cuff tear. The rotator cuff tear was noted to reduce to the greater tuberosity. Greater tuberosity was debrided using the arthroscopic shaver to create a bleeding bony bed. The undersurface of the rotator cuff tear was also debrided using the arthroscopic shaver to remove any unhealthy tissue. The arthroscope was then brought in the subacromial space. A subacromial bursectomy was performed using arthroscopic shaver. The patient was noted to have a full-thickness tear of the supraspinatus, which was mildly retracted. The tear was reducible to the greater tuberosity. A lateral stab incision was made just lateral to the acromion. A punch was then placed, was then used to place a 5.5 mm double loaded Arthrex corkscrew. Sutures were then passed through the rotator cuff tear in anterior-posterior fashion, tied in a horizontal mattress fashion. The suture lines were then crisscrossed and 2 lateral Arthrex SwiveLock anchors were placed to increase surface area of the reduction onto the greater tuberosity of the rotator cuff tendon. The remaining suture limbs were then cut. There was some significant fraying of a coracoacromial ligament as well as some undersurface spurring of the acromion and acromioplasty was performed using a radiofrequency ablator and an arthroscopic bur. Arthroscopic instruments were then removed without complication. Wounds were then irrigated thoroughly with normal saline. Subcutaneous tissue was approximated using a 2-0 Vicryl. Portals were approximated using a 3-0 Monocryl. Sterile dressings were applied. Shoulder immobilizer was placed. The patient was awakened and transferred to PACU in stable condition. Postoperative Plan: The patient will be nonweightbearing in a shoulder immobilizer for 6 weeks. She will follow the medium rotator cuff repair protoc ol 4 weeks postoperatively. Complications: None Implants: 1-5.5 mm Arthrex corkscrew, 2-4.75 mm Arthrex swivel lock Fluids & blood products: Per anesthesia record Transferred to: Recovery Room Condition: Good
--- NOTE | 2025-09-08 15:02 | RAD REPORT ---
EXAMINATION: XR RIGHT SHOUDLER CLINICAL INDICATION: Female, 70 years old. s/p R RCR, SAD, biceps tenotomy RIGHT TECHNIQUE:Two view radiograph of the right shoulder were obtained. COMPARISON: No prior exam. FINDINGS: No acute bone or joint abnormality detected. Mild AC joint degenerative changes. Glenohumer al joint difficult to assess given patient rotation. Adjacent postoperative changes in the soft tissues. IMPRESSION: No acute osseous abnormalities. Postoperative findings as above..
[2025-09-08] MEDS: HYDROCODONE/APAP 7.5/325 MG TAB ONE (15:08)
[2025-09-08] MEDS: ONDANSETRON 4 MG/2 ML VIAL ONE (15:08)
[2025-09-08 16:18] VITALS: BP 119/62; TEMP 97.1; O2SAT 96
== END 2025-09-08 16:00 | disposition home or self-care (01) ==
LOC: OR 08:06
PROVIDERS: ATTEND Orthopaedic Surgery Sports Medicine
PROC: 0RNJ4ZZ Release Right Shoulder Joint, Percutaneous Endoscopic Approach (ICD-10-PCS; principal; 2025-09-08 10:45)
DX: M75.101 Unspecified rotator cuff tear or rupture of right shoulder, not specified as traumatic (principal); M75.21 Bicipital tendinitis, right shoulder; M75.41 Impingement syndrome of right shoulder
CPT/HCPCS: 36415; 85610; 85730; 73020; 29827; 29826; 29822; J1885; A4216; J2704; J2710; J2003 ×2; J2250; J3010; J1100 ×2; J0169 ×2; J2405 ×2; J7120; J0690